=== PATIENT | female | born 1930 | race Caucasian/White ===

== ENCOUNTER → 2016-09-21 | Day surgery (SDC) | payer BC ==
[2016-09-14 16:45] VITALS: Ht 157.5 cm; Wt 47.7 kg
[~2016-09-21] VITALS: Ht 157.5 cm; Wt 47.7 kg
[~2016-09-21] MED LIST: 500ML BSS 0.3ML EPI 1:1000PF IRRIG ONE; ACETAMINOPHEN 325 MG TAB PO PRN; B-COTAB18 PO; BROM0.07; CALC500T78 PO; EpINEphrine INJ 1MG/ML AMP 1 MG/ML AMP ONE; GATI1SOL2; GINK60TA2 PO; LACTATED RINGER'S 1000ML 500 ML IV SCH; LIDOCAINE 3.5% OPH GEL PER APPLICATION CHARGE ONE; LIDOCAINE HCL 1% MPF 2 ML VIAL ONE; MIDAZOLAM HCL 1 MG/ML 2ML VIAL ONE; MULTCAP7 PO; OCUCOAT 1 ML SOLN IO ONE; OMEG10007 PO; POVIDONE-IODINE OP SOLN 30 ML BTL ONE; PRDFOPS; PROPARACAINE 0.5% OP SOLN PER DROP CHARGE OPL SCH; TOBRAMYCIN/DEXAMETHASONE OPH OINT PER APPLN CHARGE ONE; TURMPOW2 PO; VITACAP26 PO; VITAMIN D3 PO; VITATAB19 PO; [UNRECOGNIZED DRUG - OTHER] PO
[2016-09-21] MEDS: PHENYLEPHRINE HCL 2.5% OP SOLN PER DROP CHARGE OPL SCH ×2 (08:48→08:53)
[2016-09-21] MEDS: TROPICAMIDE 1% OP SOLN PER DROP CHARGE OPL SCH ×2 (08:49→08:54)
[2016-09-21] MEDS: CYCLOPENTOLATE HCL 1% OP SOLN PER DROP CHARGE OPL SCH ×2 (08:50→08:55)
[2016-09-21] MEDS: KETOROLAC 0.5% OP SOLN PER DROP CHARGE OPL SCH ×2 (08:51→08:56)
[2016-09-21] MEDS: GATIFLOXACIN OP SOLN PER DROP CHARGE OPL SCH ×2 (08:52→09:02)
--- NOTE | 2016-09-21 08:53 | History & Physical Bridge - SC ---
H&P Re-Evaluation Bridge Note: I have examined the patient, reviewed the History & Physical and in the interval since the performance of the History & Physical I have noted the following changes of clinical significance: No changes noted
[2016-09-21 09:34] VITALS: TEMP 36.4
--- NOTE | 2016-09-21 09:38 | Discharge Instructions-SurgCtr ---
Discharge Instructions Visit Reason for Visit: Cataract Left Eye Discharge Discharge Diagnosis / Problem: cataract Discharge Goals Goal(s): Improve function Activity Recommendations Activity Limitations: per Instructions/Follow-up section Anesthesia . Post Anesthesia Instructions: If you have had General Anesthesia or IV Sedation: * Do not drive today. * Resume driving when surgeon permits. * Do not make important decisions or sign legal documents today. * Call surgeon for: 1. Temperature elevations greater than 101 degrees F. 2. Uncontrollable pain. 3. Excessive bleeding. 4. Persistent nausea and vomiting. 5. Medication intolerance (nausea, vomiting or rash). * For nausea and vomiting use only clear liquids such as: tea, soda, bouillon until nausea subsides, then gradually increase diet as tolerated. * If you have any concerns or questions, call your surgeon's office. If physician is unavailable and it is an emergency, call 911 or go to the nearest emergency room. . Instructions / Follow-Up Instructions / Follow-Up ACTIVITY RECOMMENDATIONS: * No strenuous lifting, jogging or running for 4 days * No swimming or yard work for 1 week. * Limited bending is permitted, such as putting on shoes. RETURN TO SCHOOL/WORK: No work until seen by physician in office. MEDICATIONS: Resume previous medications unless instructed otherwise by your surgeon. This includes eye drops for glaucoma. Zymaxid/Gatifloxacin (miller cap) - one drop every 2 hours until bedtime Nevanac/Ilevro/Prolensa/Ketorolac (ramirez cap) - one drop every 4 hours until bedtime Prednisolone (white/pink cap, SHAKE WELL) - one drop every 2 hours until bedtime Starting tomorrow - all 3 drops every 4 hours until seen in the office Optive drops - as needed for discomfort SPECIAL CARE INSTRUCTIONS: * Wear eyeshield when sleeping, for four nights. * You may wear your own glasses or sunglasses while awake. * You may read or watch TV * You may shower and wash your face, but be gentle around the eye and pat dry. * Blurry vision and mild irritation are normal. * Call office if pain is more severe or vision becomes dark at . FOLLOW UP VISIT: Follow-up with Dr Velásquez tomorrow. Diet Recommendations Home Diet: resume previous diet Procedures Procedures Performed: Left Eye Cataract Phacoemulsification With Intraocular Lens Implant Pending Studies Studies pending at discharge: no Medical Emergencies . Who to Call and When: Medical Emergencies: If at any time you feel your situation is an emergency, please call 911 immediately. . Non-Emergent Contact Non-Emergency issues call your: Apartment Maintenance . . "Provider Documentation" section prepared by Joe Velásquez.
--- NOTE | 2016-09-21 09:39 | [facility] Operative Report ---
Operative Report 1. PREOPERATIVE DIAGNOSIS: Cataract of the left eye. 2. POSTOPERATIVE DIAGNOSIS: Same. 3. PROCEDURE: Phacoemulsification with intraocular lens implantation of the left eye. SURGEON: Dr. Joe Velásquez. ANESTHESIA: Topical Lidocaine gel, 1% Non- Preserved intracameral Lidocaine, and monitored intravenous sedation. INDICATIONS FOR THE PROCEDURE: The patient is a 85 - year-old female with a history of cataract of the left eye causing significant visual impairment. The details of the proposed procedure were explained to the patient who asked appropriate questions and following discussion of all risks, benefits and alternatives agreed to have the procedure done. 4. OPERATION AND FINDINGS: DESCRIPTION OF PROCEDURE: After informed consent was obtained, the patient was brought to the Operating Room at the [facility]. The patient was placed in a supine position and then the left eye was prepped and draped in the usual sterile fashion for intraocular surgery. A drop of topical Lidocaine gel was placed in the operative eye. A wire lid speculum was then placed in the fornices. A corneal paracentesis was then created temporally. The Non-Preserved Lidocaine was then instilled into the anterior chamber. The anterior chamber was then pressurized with viscoelastic. A 2.0 mm clear corneal incision was then created temporally. A cystotome was inserted into the anterior chamber and used to create a tear in the anterior lens capsule. This capsular tear was then used to create a small flap and the flap was dragged in a counterclockwise direction in order to create a continuous curvilinear capsulorrhexis. Hydrodissection was accomplished with balanced salt solution. Phacoemulsification of the lens nucleus was then performed in a standard [id number] technique. The phaco time was 22 seconds with an average power of 14 %. The remaining cortical material was removed using irrigation aspiration. The capsular bag was then filled with viscoelastic. A Bausch [employer] Lomb MI60L +23.5 diopters lens was then loaded into the injector and injected into the capsular bag. The remaining viscoelastic was removed with the irrigation aspiration handpiece. The wound was hydrated and then checked and found to be watertight. The intraocular pressure was checked and found to be adequate. The wire lid speculum was removed and the patient's face was cleaned and dried. TobraDex ointment was placed in the inferior fornix. The patient was discharged to the Recovery Room having tolerated the procedure well. There were no complications. The patient will be seen tomorrow in the office for follow-up. I attest to the content of the Intraoperative Record and any orders documented therein. Any exceptions are noted below.
--- NOTE | 2016-09-21 10:05 | Anesthesia Progress Nt - [facility] ---
Anesthesia Post Op Note Date & Time Sep 21, 2016 at 10:05 Vital Signs Pain Intensity: 0 Vital Signs Past 12 Hours Date Time Temp Pulse Resp B/P Pulse Ox O2 Delivery O2 Flow Rate FiO2 09/21/16 09:34 36.4 71 16 144/76 99 Room Air 09/21/16 08:40 36.9 74 16 170/85 99 Room Air Notes Mental Status: alert / awake / arousable, participated in evaluation Nausea / Vomiting: adequately controlled Pain: adequately controlled Airway Patency, RR, SpO2: stable & adequate BP & HR: stable & adequate Hydration State: stable & adequate Anesthetic Complications: no major complications apparent Pt doing well.
[2016-09-21 10:09] VITALS: BP 166/88; PULSE 77; O2SAT 98
== END | disposition home or self-care (01) ==
LOC: X.SURG 08:30
PROVIDERS: ATTEND Ophthalmology
DX: H26.9 Unspecified cataract (principal); Z86.73 Personal history of transient ischemic attack (TIA), and cerebral infarction without residual deficits; Z96.1 Presence of intraocular lens

== ENCOUNTER 2017-12-02 16:23 | Inpatient (IN) | payer BC, OTHER ==
[~2017-12-02] VITALS: Ht 154.9 cm; Wt 56.1 kg
[~2017-12-02 16:23] MED LIST changes: -500ML BSS 0.3ML EPI 1:1000PF IRRIG ONE; -ACETAMINOPHEN 325 MG TAB PO PRN; -EpINEphrine INJ 1MG/ML AMP 1 MG/ML AMP ONE; -LACTATED RINGER'S 1000ML 500 ML IV SCH; -LIDOCAINE 3.5% OPH GEL PER APPLICATION CHARGE ONE; -LIDOCAINE HCL 1% MPF 2 ML VIAL ONE; -MIDAZOLAM HCL 1 MG/ML 2ML VIAL ONE; -OCUCOAT 1 ML SOLN IO ONE; -POVIDONE-IODINE OP SOLN 30 ML BTL ONE; -PROPARACAINE 0.5% OP SOLN PER DROP CHARGE OPL SCH; -TOBRAMYCIN/DEXAMETHASONE OPH OINT PER APPLN CHARGE ONE
--- NOTE | 2017-12-02 17:18 | EMERGENCY ROOM VISIT NOTE ---
History Report prepared by Brooke: Ania Deras Under the Supervision of: Dr. Tonny Diaz M.D. 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 She states she fell down 2 steps because she did not seem them. Movement is a worsening factor. She denies any abdominal pain. She is accompanied by her neighbor who states that she was at the [employer] when she fell down the 2 steps. Source of History: patient, friend (neighbor) Onset: optical engineer Position: shoulder (right) Symptom Intensity: severe Modifying Factors (Worsening): movement Associated Symptoms: No abdominal pain Review of Systems See HPI for pertinent positives and negatives. A total of ten systems were reviewed and were otherwise negative. Past Medical & Surgical Medical Problems: (1) Closed right hip fracture (2) CVA (cerebral vascular accident) Surgical Problems: (1) h o finger surgery (2) Hx of tonsillectomy Family History Omitted secondary to age Social History Smoking Status: Never Smoker Alcohol Use: none Drug Use: none Marital Status: Housing Status: lives with significant other Occupation Status: retired Current/Historical Medications Scheduled Ascorbic Acid (Vitamin C), 2 TABS PO BID B-Complex Vitamins (Vitamin B Complex), 1 TAB PO DAILY Bromelains (Bromelain), 1 DOSE PO Q2D Coconut Oil (Bulk) (Coconut Oil), 1 CAP PO DAILY Flaxseed (Linseed) (Flaxseed Oil), 1 DOSE PO DAILY Ginkgo Biloba (Ginkgo), 1 TAB PO BID Multiple Minerals W/ Vitamins (Calcium Citrate +), 2 TABS PO BID Multiple Vitamins W/ Minerals (Eye Vitamins), 1 CAP PO QAM Wales Oil (Wales Oil), 1 DOSE PO DAILY Turmeric (Curcuma Longa) (Bulk (Curcumin), 1 DOSE PO QAM Vitamin A-Beta Carotene (Vitamin A), 1 TAB PO DAILY [Vitamin D3], 6 DROP PO DAILY Allergies Coded Allergies: No Known Allergies (Unverified , 09/21/16) Physical Exam Vital Signs Date Time Temp Pulse Resp B/P (MAP) Pulse Ox O2 Delivery O2 Flow Rate FiO2 12/02/17 20:13 69 12/02/17 18:48 87 24 157/91 95 Room Air 12/02/17 16:31 36.4 88 20 182/128 98 Room Air Physical Exam Physical Exam GENERAL: She is oriented to person, place, and time. She appears well- developed and well-nourished. HENT: Exam performed. Head: Normocephalic and atraumatic. Right Ear: External ear normal. No mastoid tenderness. Left Ear: External ear normal. No mastoid tenderness. Mouth/Throat: The oropharynx is clear and moist. No trismus in the jaw. No dental abscesses or uvula swelling. No oropharyngeal exudate or tonsillar abscesses. ____ EYES: Conjunctivae and EOM are normal. Pupils are equal, round, and reactive to light. Right eye exhibits no discharge. Left eye exhibits no discharge. No scleral icterus. ____ NECK: C collar in place. No pain noted to neck. CV: Normal rate, regular rhythm, normal heart sounds and intact distal pulses. There is no peripheral edema. Palpable radial pulses bue. ____ PULM/CHEST: Effort normal and breath sounds normal. No respiratory distress. No stridor. She has no wheezes. She has no rales. Chest Wall: She exhibits no tenderness. ____ ABD: The abdomen is soft. Bowel sounds are normal. She has no distension. No mass is present. There is no tenderness. There is no rebound, no guarding, no Pruitt's sign and no tenderness at McBurney's point. Rovsig negative MUSC/SKEL: Pain on palpation of the right shoulder. ROM limited secondary to pain. No pain on palpation of either clavicle. Pelvis stable. No CT or L spine tenderness. LYMPH: No cervical adenopathy. ____ NEURO: She is alert and oriented to person, place, and time. No cranial nerve deficit or sensory deficit.GCS eye subscore is 4. GCS verbal subscore is 5. GCS motor subscore is 6. Cerebellar tests wnl. ____ SKIN: Skin is warm and dry. She is not diaphoretic. ____ PSYCH: She has a normal mood and affect. Her behavior is normal. Judgment and thought content normal. ____ Medical Decision & Procedures ER Provider Diagnostic Interpretation: Radiology results as stated below per my review and radiologist interpretation: RIGHT SHOULDER 4 VIEWS CLINICAL HISTORY: Fall with right arm pain. FINDINGS: 4 views the right shoulder are obtained. No prior studies are available for comparison at the time of dictation. The skeletal structures are osteopenic. There is an impacted fracture of the right humeral neck extending into the greater tuberosity of the humeral head. No distracted fragment is identified. No additional fracture is seen. The glenohumeral articulation is preserved. Minimal degenerative changes seen at the acromioclavicular joint. The overlying soft tissues are normal in appearance. The imaged right lung parenchyma appears clear. IMPRESSION: Osteopenia with a subtle impacted fracture of the right humeral neck as above. Electronically signed by: Anibal Wright M.D. 12/02/2017 6:51 PM Dictated Date/Time: 12/02/2017 6:49 PM SINGLE VIEW PELVIS CLINICAL HISTORY: Fall. FINDINGS: An AP view of the pelvis is compared to study dated 05/06/2016. The skeletal structures are osteopenic. There is an impacted fracture of the subcapital right femur with mild overlying soft tissue edema. No additional acute fracture is identified. There is chronic posttraumatic deformity and postoperative change involving the left proximal femur. The bony pelvis is intact as visualized. Mild sclerotic change is noted in the sacroiliac joints. Mild arthritic change and joint space narrowing is seen in the hips. Numerous phleboliths are identified in the pelvis. No bowel obstruction is seen. IMPRESSION: 1. There is an impacted subcapital fracture of the right femur. 2. Chronic posttraumatic deformity and postoperative change is noted in the left proximal femur. Electronically signed by: Anibal Wright M.D. 12/02/2017 6:49 PM Dictated Date/Time: 12/02/2017 6:[address] SCAN OF THE BRAIN WITHOUT IV CONTRAST CLINICAL HISTORY: Fall. COMPARISON STUDY: CT of the brain dated 10/22/2015. TECHNIQUE: Unenhanced axial CT scan of the brain is performed from the vertex to the skull base. A dose lowering technique was utilized adhering to the principles of ALARA. CT DOSE: 1517.48 mGy.cm FINDINGS: Brain parenchyma: There are age-related involutional changes noting moderate confluent subcortical and periventricular microangiopathic change. A chronic lacunar infarct is identified in the right basal ganglia. There is no hemorrhage, mass effect, or evidence of acute territorial ischemia by CT criteria. Cohen-white matter is preserved. No extra-axial fluid collection is seen. Mineralization is noted in the basal ganglia. Ventricles, sulci, cisterns: Prominent secondary to involutional change. Intracranial vasculature: There is atherosclerotic calcification of the cavernous carotid and vertebral arteries. Calvarium: The skeletal structures are osteopenic. No depressed calvarial fracture is seen. Sinuses and mastoids: The visualized paranasal sinuses are clear. The mastoid air cells are well pneumatized. Orbits: The bony orbits are grossly intact. There are bilateral ocular lens implants. IMPRESSION: There is no hemorrhage, mass effect, or evidence of acute territorial ischemia by CT criteria. Electronically signed by: Anibal Wright M.D. 12/02/2017 5:59 PM Dictated Date/Time: 12/02/2017 5:56 PM TWO VIEW CHEST CLINICAL HISTORY: Fall. FINDINGS: AP supine and crosstable lateral chest radiographs are compared to study dated 05/06/2016. The heart is top normal for projection and there is atherosclerotic calcification of the thoracic aorta. The pulmonary vasculature is noncongested. Chronic residual thickening is similar to previous. No airspace consolidation or pleural effusion is identified. There is no pneumothorax. The skeletal structures are osteopenic. Degenerative changes noted in the thoracic spine. IMPRESSION: No acute cardiopulmonary abnormality. Electronically signed by: Anibal Wright M.D. 12/02/2017 6:47 PM Dictated Date/Time: 12/02/2017 6:[address] SCAN OF THE CERVICAL SPINE CLINICAL HISTORY: Fall. COMPARISON STUDY: No priors. TECHNIQUE: CT scan of the cervical spine is performed from the skull base to the upper thoracic spine. Images are reviewed in the axial, sagittal, and coronal planes. IV contrast was not administered for this examination. A dose lowering technique was utilized adhering to the principles of ALARA. CT DOSE: Reported separately under the concurrently performed CT scan of the brain. FINDINGS: Skeletal structures: The skeletal structures are osteopenic. There is no evidence of fracture or subluxation involving the cervical spine. Vertebral body height is maintained. There is minimal anterolisthesis at C3-C4. Alignment is otherwise preserved. There is straightening of the cervical lordosis with reversal centered at C4-C5. Anterior osteophytes are seen in the lower cervical region. The odontoid process and lateral masses are intact. The atlantoaxial articulation is preserved noting advanced productive degenerative change. The spinous processes appear intact. There is moderate to advanced multilevel cervical spondylosis. Uncovertebral and facet arthropathy contribute to neural foraminal stenosis at most levels. Intervertebral discs: There is moderate disc space narrowing seen from C3 -C4 through C6-C7. Central canal: Posterior disc osteophyte complexes at C4-C5, C5-C6, and C6-C7 likely contribute to acquired compromise of the central canal. Soft tissues: The prevertebral and paraspinous soft tissues are within normal limits. A coarse calcification is noted in the left thyroid lobe. Calvarium: The visualized calvarium at the skull base appears intact. Brain parenchyma: Partially visualized brain parenchyma the skull base is within normal limits. Sinuses and mastoids: The visualized paranasal sinuses are clear. The mastoid air cells are well pneumatized. Lung apices: Clear as visualized noting biapical scarring. IMPRESSION: 1. There is no evidence of fracture or subluxation involving the cervical spine. 2. Osteopenia and multilevel spondylosis as above. Electronically signed by: Anibal Wright M.D. 12/02/2017 6:03 PM Dictated Date/Time: 12/02/2017 5:59 PM Laboratory Results 12/02/17 19:05 Red Blood Count 4.17, Mean Corpuscular Volume 90.4, Mean Corpuscular Hemoglobin 32.1, Mean Corpuscular Hemoglobin Concent 35.5, Mean Platelet Volume 11.7, Neutrophils (%) (Auto) 84.6, Lymphocytes (%) (Auto) 10.3, Monocytes (%) (Auto) 4.3, Eosinophils (%) (Auto) 0.2, Basophils (%) (Auto) 0.1, Neutrophils # (Auto) 10.98, Lymphocytes # (Auto) 1.33, Monocytes # (Auto) 0.56, Eosinophils # (Auto) 0.02, Basophils # (Auto) 0.01 12/02/17 19:05 Test 12/02/17 19:05 White Blood Count 12.96 K/uL (4.8-10.8) Red Blood Count 4.17 M/uL (4.2-5.4) Hemoglobin 13.4 g/dL (12.0-16.0) Hematocrit 37.7 % (37-47) Mean Corpuscular Volume 90.4 fL (80-100) Mean Corpuscular Hemoglobin 32.1 pg (25-34) Mean Corpuscular Hemoglobin Concent 35.5 g/dl (32-36) Platelet Count 158 K/uL (130-400) Mean Platelet Volume 11.7 fL (7.4-10.4) Neutrophils (%) (Auto) 84.6 % Lymphocytes (%) (Auto) 10.3 % Monocytes (%) (Auto) 4.3 % Eosinophils (%) (Auto) 0.2 % Basophils (%) (Auto) 0.1 % Neutrophils # (Auto) 10.98 K/uL (1.4-6.5) Lymphocytes # (Auto) 1.33 K/uL (1.2-3.4) Monocytes # (Auto) 0.56 K/uL (0.11-0.59) Eosinophils # (Auto) 0.02 K/uL (0-0.5) Basophils # (Auto) 0.01 K/uL (0-0.2) RDW Standard Deviation 45.1 fL (36.4-46.3) RDW Coefficient of Variation 13.6 % (11.5-14.5) Immature Granulocyte % (Auto) 0.5 % Immature Granulocyte # (Auto) 0.06 K/uL (0.00-0.02) Prothrombin Time 10.1 SECONDS (9.0-12.0) Prothromb Time International Ratio 1.0 (0.9-1.1) Activated Partial Thromboplast Time 26.8 SECONDS (21.0-31.0) Partial Thromboplastin Ratio 1.0 Anion Gap 6.0 mmol/L (3-11) Est Creatinine Clear Calc Drug Dose 54.4 ml/min Estimated GFR () 97.9 Estimated GFR (Non- 84.4 BUN/Creatinine Ratio 30.0 (10-20) Calcium Level 9.0 mg/dl (8.5-10.1) Magnesium Level 2.1 mg/dl (1.8-2.4) Total Bilirubin 0.3 mg/dl (0.2-1) Direct Bilirubin 0.1 mg/dl (0-0.2) Aspartate Amino Transf (AST/SGOT) 47 U/L (15-37) Alanine Aminotransferase (ALT/SGPT) 38 U/L (12-78) Alkaline Phosphatase 101 U/L (45-117) Total Protein 7.7 gm/dl (6.4-8.2) Albumin 3.9 gm/dl (3.4-5.0) Thyroid Stimulating Hormone (TSH) 2.350 uIu/ml (0.300-4.500) Laboratory results reviewed by me Medications Administered Medications (Trade) Dose Ordered Sig/Aristeo Route Start Time Stop Time Status Last Admin Dose Admin Sodium Chloride 1,000 ml @ 75 mls/hr [id number] STAT IV 12/02/17 19:11 12/02/17 20:47 DC 12/02/17 19:17 75 MLS/HR Ondansetron HCl (Zofran Inj) 4 mg NOW STAT IV 12/02/17 19:11 12/02/17 19:13 DC 12/02/17 19:18 4 MG Morphine Sulfate (MoRPHine SULFATE INJ) 2 mg STK-MED ONCE .ROUTE 12/02/17 19:14 12/02/17 19:15 DC 12/02/17 19:18 2 MG Morphine Sulfate (MoRPHine SULFATE INJ) 4 mg NOW STAT IV 12/02/17 20:29 12/02/17 20:30 DC 12/02/17 20:34 4 MG Procedure Bedside FAST exam performed with ultrasound. Views were obtained in the hepatorenal subxyphoid splenorenal and suprapubic windows. No free fluid in the abdomen. No pericardial tamponade. ED Course 1705: The patient was evaluated in room A12. A complete history and physical exam was performed. 1910: Zofran Inj 4 mg IV Morphine Sulfate 2 mg IV Sodium Chloride 1000 ml @ 75 mls/hr IV 1913: Morphine Sulfate 2 mg IV 6: CT is within normal limits. X-rays show right-sided humeral fracture and femur fracture. Fast negative. I discussed the patient's case with Dr. Rainey, Orthopedics. He viewed the x-rays and agreed the patient should be admitted to medicine. [facility] the [facility] The patient will be evaluated for further treatment and disposition. Medical Decision CT is within normal limits. X-rays show right-sided humeral fracture and femur fracture. Fast negative. I discussed the patient's case with Dr. Rainey, Orthopedics. He viewed the x-rays and agreed the patient should be admitted to medicine. Discussed the patient's case with [facility]ist . The patient will be evaluated for further treatment and disposition. Medication Reconcilliation Current Medication List: was personally reviewed by me Blood Pressure Screening Patient's blood pressure: Elevated blood pressure Blood pressure disposition: Elevated BP felt to be situational Consults Time Called: 1919 [facility] Phys[facility] Returned Call: 1927 Discussed the patient's case with [facility] . The patient will be evaluated for further treatment and disposition. Additional Consults: Time Called: 1919 Consulted Physician: Dr. Rainey, Orthopedics Returned Call: 1925 Additional Comments: I discussed the patient's with him. He viewed the x-rays and agreed the patient should be admitted to medicine. Impression Primary Impression: Femur fracture, right Additional Impressions: Fracture of humerus, right, closed Fall Scribe Attestation The scribe's documentation has been prepared under my direction and personally reviewed by me in its entirety. I confirm that the note above accurately reflects all work, treatment, procedures, and medical decision making performed by me. The chart was completed utilizing [employer] Speech voice recognition software. Grammatical errors, random word insertions, pronoun errors, and incomplete sentences are an occasional consequence of this system due to software limitations, ambient noise, and hardware issues. Any formal questions or concerns about the content, text, or information contained within the body of this dictation should be directly addressed to the physician for clarification. Departure Information Dispostion Being Evaluated By Hospitalist ([facility] ) Referrals ,Santiago Dunne M.D. (PCP) Patient Instructions My [facility] Problem Qualifiers Primary Impression: Femur fracture, right Encounter type: initial encounter Femur location: unspecified portion of femur Fracture type: closed Fracture morphology: unspecified fracture morphology Qualified Codes: S72.91XA - Unspecified fracture of right femur, initial encounter for closed fracture Additional Impressions: Fracture of humerus, right, closed Encounter type: initial encounter Humerus Location: proximal Fracture morphology: unspecified fracture morphology Qualified Codes: S42.201A - Unspecified fracture of upper end of right humerus, initial encounter for closed fracture Fall Encounter type: initial encounter Qualified Codes: W19.XXXA - Unspecified fall, initial encounter
--- NOTE | 2017-12-02 18:01 | DIAGNOSTIC IMAGING REPORT ---
CT SCAN OF THE BRAIN WITHOUT IV CONTRAST CLINICAL HISTORY: Fall. COMPARISON STUDY: CT of the brain dated 10/22/2015. TECHNIQUE: Unenhanced axial CT scan of the brain is performed from the vertex to the skull base. A dose lowering technique was utilized adhering to the principles of ALARA. CT DOSE: 1517.48 mGy.cm FINDINGS: Brain parenchyma: There are age-related involutional changes noting moderate confluent subcortical and periventricular microangiopathic change. A chronic lacunar infarct is identified in the right basal ganglia. There is no hemorrhage, mass effect, or evidence of acute territorial ischemia by CT criteria. Cohen-white matter is preserved. No extra-axial fluid collection is seen. Mineralization is noted in the basal ganglia. Ventricles, sulci, cisterns: Prominent secondary to involutional change. Intracranial vasculature: There is atherosclerotic calcification of the cavernous carotid and vertebral arteries. Calvarium: The skeletal structures are osteopenic. No depressed calvarial fracture is seen. Sinuses and mastoids: The visualized paranasal sinuses are clear. The mastoid air cells are well pneumatized. Orbits: The bony orbits are grossly intact. There are bilateral ocular lens implants. IMPRESSION: There is no hemorrhage, mass effect, or evidence of acute territorial ischemia by CT criteria. Electronically signed by: Anibal Wright M.D. 12/02/2017 5:59 PM Dictated Date/Time: 12/02/2017 5:56 PM
--- NOTE | 2017-12-02 18:04 | DIAGNOSTIC IMAGING REPORT ---
CT SCAN OF THE CERVICAL SPINE CLINICAL HISTORY: Fall. COMPARISON STUDY: No priors. TECHNIQUE: CT scan of the cervical spine is performed from the skull base to the upper thoracic spine. Images are reviewed in the axial, sagittal, and coronal planes. IV contrast was not administered for this examination. A dose lowering technique was utilized adhering to the principles of ALARA. CT DOSE: Reported separately under the concurrently performed CT scan of the brain. FINDINGS: Skeletal structures: The skeletal structures are osteopenic. There is no evidence of fracture or subluxation involving the cervical spine. Vertebral body height is maintained. There is minimal anterolisthesis at C3-C4. Alignment is otherwise preserved. There is straightening of the cervical lordosis with reversal centered at C4-C5. Anterior osteophytes are seen in the lower cervical region. The odontoid process and lateral masses are intact. The atlantoaxial articulation is preserved noting advanced productive degenerative change. The spinous processes appear intact. There is moderate to advanced multilevel cervical spondylosis. Uncovertebral and facet arthropathy contribute to neural foraminal stenosis at most levels. Intervertebral discs: There is moderate disc space narrowing seen from C3 -C4 through C6-C7. Central canal: Posterior disc osteophyte complexes at C4-C5, C5-C6, and C6-C7 likely contribute to acquired compromise of the central canal. Soft tissues: The prevertebral and paraspinous soft tissues are within normal limits. A coarse calcification is noted in the left thyroid lobe. Calvarium: The visualized calvarium at the skull base appears intact. Brain parenchyma: Partially visualized brain parenchyma the skull base is within normal limits. Sinuses and mastoids: The visualized paranasal sinuses are clear. The mastoid air cells are well pneumatized. Lung apices: Clear as visualized noting biapical scarring. IMPRESSION: 1. There is no evidence of fracture or subluxation involving the cervical spine. 2. Osteopenia and multilevel spondylosis as above. Electronically signed by: Anibal Wright M.D. 12/02/2017 6:03 PM Dictated Date/Time: 12/02/2017 5:59 PM
--- NOTE | 2017-12-02 18:48 | DIAGNOSTIC IMAGING REPORT ---
TWO VIEW CHEST CLINICAL HISTORY: Fall. FINDINGS: AP supine and crosstable lateral chest radiographs are compared to study dated 05/06/2016. The heart is top normal for projection and there is atherosclerotic calcification of the thoracic aorta. The pulmonary vasculature is noncongested. Chronic residual thickening is similar to previous. No airspace consolidation or pleural effusion is identified. There is no pneumothorax. The skeletal structures are osteopenic. Degenerative changes noted in the thoracic spine. IMPRESSION: No acute cardiopulmonary abnormality. Electronically signed by: Anibal Wright M.D. 12/02/2017 6:47 PM Dictated Date/Time: 12/02/2017 6:45 PM
--- NOTE | 2017-12-02 18:50 | DIAGNOSTIC IMAGING REPORT ---
SINGLE VIEW PELVIS CLINICAL HISTORY: Fall. FINDINGS: An AP view of the pelvis is compared to study dated 05/06/2016. The skeletal structures are osteopenic. There is an impacted fracture of the subcapital right femur with mild overlying soft tissue edema. No additional acute fracture is identified. There is chronic posttraumatic deformity and postoperative change involving the left proximal femur. The bony pelvis is intact as visualized. Mild sclerotic change is noted in the sacroiliac joints. Mild arthritic change and joint space narrowing is seen in the hips. Numerous phleboliths are identified in the pelvis. No bowel obstruction is seen. IMPRESSION: 1. There is an impacted subcapital fracture of the right femur. 2. Chronic posttraumatic deformity and postoperative change is noted in the left proximal femur. Electronically signed by: Anibal Wright M.D. 12/02/2017 6:49 PM Dictated Date/Time: 12/02/2017 6:47 PM
--- NOTE | 2017-12-02 18:52 | DIAGNOSTIC IMAGING REPORT ---
RIGHT SHOULDER 4 VIEWS CLINICAL HISTORY: Fall with right arm pain. FINDINGS: 4 views the right shoulder are obtained. No prior studies are available for comparison at the time of dictation. The skeletal structures are osteopenic. There is an impacted fracture of the right humeral neck extending into the greater tuberosity of the humeral head. No distracted fragment is identified. No additional fracture is seen. The glenohumeral articulation is preserved. Minimal degenerative changes seen at the acromioclavicular joint. The overlying soft tissues are normal in appearance. The imaged right lung parenchyma appears clear. IMPRESSION: Osteopenia with a subtle impacted fracture of the right humeral neck as above. Electronically signed by: Anibal Wright M.D. 12/02/2017 6:51 PM Dictated Date/Time: 12/02/2017 6:49 PM
[2017-12-02] MEDS ORDERED: SODIUM CHLORIDE 0.9% 1000ML 1,000 ML IV STA (19:11)
[2017-12-02] MEDS ORDERED: MoRPHine SULFATE 4 MG/ML 1 ML CARP\\VIAL IV STA ×2 (19:11→20:29)
[2017-12-02] MEDS ORDERED: ONDANSETRON INJ 2 MG/ML 2 ML VIAL IV STA (19:11)
[2017-12-02] MEDS ORDERED: MoRPHine SULFATE 2 MG/ML CARP ONE (19:14)
[2017-12-02 19:31] LABS: CREATININE 0.56 mg/dl (0.60-1.20); POTASSIUM 3.8 mmol/L (3.5-5.1)
[2017-12-02 19:32] LABS: PTT PATIENT 26.8 SECONDS (21.0-31.0)
[2017-12-02] MEDS ORDERED: BROM1POW5 PO (19:33)
[2017-12-02] MEDS ORDERED: COCO1OIL2 PO (19:33)
[2017-12-02] MEDS ORDERED: VITATAB19 PO (19:33)
[2017-12-02] MEDS ORDERED: ASCO10003 PO (19:33)
[2017-12-02] MEDS ORDERED: FLAXOIL3 PO (19:33)
[2017-12-02] MEDS ORDERED: OLIV1OIL5 PO (19:33)
[2017-12-02] MEDS ORDERED: MULT-360 PO (19:33)
[2017-12-02 19:34] LABS: HEMATOCRIT 37.7 % (37-47); HEMOGLOBIN 13.4 g/dL (12.0-16.0); MEAN CELL VOLUME 90.4 fL (80-100); MEAN CORPUSCULAR HEMOGLOBIN 32.1 pg (25-34); MEAN CORPUSCULAR HGB CONC 35.5 g/dl (32-36); RED CELL DISTRIBUTION WIDTH CV 13.6 % (11.5-14.5); RED CELL DISTRIBUTION WIDTH SD 45.1 fL (36.4-46.3); WHITE BLOOD COUNT 12.96 K/uL (4.8-10.8)
[2017-12-02 19:40] LABS: MEAN PLATELET VOLUME 11.7 fL (7.4-10.4); PLATELET COUNT 158 K/uL (130-400)
[2017-12-02 19:41] LABS: BASO % 0.1 %; BASO ABS # 0.01 K/uL (0-0.2); EOS % 0.2 %; EOS ABS # 0.02 K/uL (0-0.5); IG# 0.06 K/uL (0.00-0.02); LYMPH % 10.3 %; LYMPH ABS # 1.33 K/uL (1.2-3.4); MONO % 4.3 %; MONO ABS # 0.56 K/uL (0.11-0.59); NEUT % 84.6 %; NEUT ABS # 10.98 K/uL (1.4-6.5)
[2017-12-02 20:30] LABS: ALBUMIN 3.9 gm/dl (3.4-5.0); TOTAL PROTEIN 7.7 gm/dl (6.4-8.2)
[2017-12-02] MEDS ORDERED: ACETAMINOPHEN 325 MG TAB PO PRN (20:45)
[2017-12-02] MEDS ORDERED: SOD PHOSPHATE/SOD BIPHOSPHATE ENEMA 132 ML BTL PR PRN (20:45)
[2017-12-02] MEDS ORDERED: PROCHLORPERAZINE INJ 5 MG in SYRINGE 4 ML IV PRN (20:45)
[2017-12-02] MEDS ORDERED: BISACODYL 10 MG SUPP PR PRN (20:45)
[2017-12-02] MEDS ORDERED: NALOXONE HCL 0.4 MG/1 ML VIAL/CARP IV PRN (20:45)
[2017-12-02] MEDS ORDERED: MAGNESIUM HYDROXIDE SUSP 30 ML UDC PO PRN (20:45)
[2017-12-02 21:20] VITALS: BP 93/54; PULSE 66; TEMP 37.5; O2SAT 97; BMI 23.4
[2017-12-02] MEDS ORDERED: NSS + 20MEQ KCL 1000ML 1,000 ML IV SCH (22:00)
--- NOTE | 2017-12-02 22:02 | HISTORY & PHYSICAL EXAMINATION ---
DATE OF ADMISSION: 12/02/2017 PRIMARY CARE PHYSICIAN: Dr. Celaya. CHIEF COMPLAINT: Fall. HISTORY OF PRESENT ILLNESS: History obtained from patient and records. Medical history significant for chronic hyponatremia, neuropathy as per records, macular degeneration. Recent confinement May 2016 for left hip fracture secondary to fall sp surgery. Patient was at the [facility] earlier today for a meal. She fell down 2 steps somewhere at the facility. Patient fell on her right side. She subsequently noted excruciating right shoulder and R hip pain. No chest pain, no shortness of breath, no syncope, no head trauma, no LOC. She was brought to the Emergency Room. MEDICAL HISTORY: As above. She stopped her aspirin for stroke sometime ago because of bleeding. SURGERIES: Finger surgery, tonsillectomy, left hip surgery. HOME MEDICATIONS: Include vitamin C, vitamin B, bromelain, coconut oil, flax seed, calcitrate, olive oil, turmeric, vitamin A, vitamin D3. ALLERGIES: No known drug allergies. FAMILY HISTORY: Stroke. PERSONAL SOCIAL HISTORY: Nonsmoker, no chronic intake of alcoholic beverages. , retired pianist. REVIEW OF SYSTEMS: As per HPI. All 10 systems reviewed, all other ROS negative. FUNCTIONALITY : Still able to do housework without exertional chest pain or shortness of breath PHYSICAL EXAMINATION: VITAL SIGNS: Blood pressure was noted to be 182/128 later 150/70, pulse rate 87, RR 24, temperature 36.4, sats 95 on room air. GENERAL: Noted to be anxious, uncomfortable, no respiratory distress, looks younger for stated age. SKIN: Normal color, warm. HEENT: [place] palpebral conjunctivae. No ptosis. Dry mucosa. NECK: Supple, nontender. LUNGS: Decreased breath sounds. No tenderness. HEART: Regular rate and rhythm, no murmur. ABDOMEN: Soft, nontender. EXTREMITIES: Sling on the right upper extremity. Tenderness in right hip. NEUROLOGIC: Coherent. No gross focality. LABORATORY DATA: Hemoglobin was noted to be 13.4, hematocrit 37.7, white blood cell count 12.96, platelets 158. Sodium noted to be 130, potassium 4.8, chloride 107, CO2 27, BUN 17, creatinine 0.5, glucose 96. Chest x-ray borderline cardiomegaly. CT head, no acute pathology. R Shoulder x-ray subcapital impacted fracture, right humeral neck. Pelvis x-ray impacted subcapital fracture, right femur. Chronic postop changes on the left proximal femur. EKG as per my interpretation NSR, diffuse T-wave flattening ASSESSMENT: 1. Right femoral fracture, right humeral fracture secondary to mechanical fall. 2. Hypertension, likely situational possibly chronic with borderline cardiomegaly on chest x-ray. 3. Chronic hyponatremia. 4. History of cerebrovascular accident, off aspirin as per patient preference PLAN: [facility] Orthopedics consult RE right hip fracture, right humeral fracture. (ER provider already in touch with [facility] relocation specialist. Patient requesting for Dr. Diaz.) analgesia, monitor BP. May need initiation of maintenance hypertensive if BP continues to be elevated. Follow sodium. May need fluid restriction if w/ further drop. DVT prophylaxis, SCDs for now RE possible surgery Consider pharmacologic anticoagulation with Lovenox 30 mg SQ daily once bleeding risk is deemed to be minimal and negligible following Orthopedics evaluation. PT, OT evaluation Social service RE DC planning Full code. No medical contraindication to surgery if contemplated by Orthopedics following evaluation in AM. The patient to go for surgery. MTDD
[2017-12-02] MEDS: DOCUSATE SODIUM/SENNA 50/8.6MG TAB PO SCH (22:40)
[2017-12-02 22:51] VITALS: BP 132/68; PULSE 71; TEMP 36.9; O2SAT 100
[2017-12-03] VITALS (9 sets, daily range): BP systolic 111–154; BP diastolic 65–83; PULSE 61–94; TEMP 36.5–37.2; O2SAT 95–100; Ht 154.9 cm; Wt 56.1 kg
[2017-12-03] MEDS: MoRPHine SULFATE 4 MG/ML 1 ML CARP\\VIAL IV PRN ×2 (02:12→19:51)
[2017-12-03] MEDS ORDERED: LORAZEPAM 0.5 MG TAB PO ONE (02:45)
[2017-12-03 06:18] LABS: CALCIUM 8.1 mg/dl (8.5-10.1); CREATININE 0.59 mg/dl (0.60-1.20); POTASSIUM 4.6 mmol/L (3.5-5.1)
[2017-12-03] MEDS ORDERED: LIDOCAINE HCL 2% 2 ML VIAL (20MG/ML) ONE (06:42)
[2017-12-03] MEDS ORDERED: PROPOFOL IV EMULSION 10 MG/ML 20 ML VIAL IV ONE (06:42)
[2017-12-03] MEDS ORDERED: FENTANYL CITRATE INJ 50 MCG/1 ML 2 ML VIAL ONE (06:42)
[2017-12-03] MEDS ORDERED: MIDAZOLAM HCL 1 MG/ML 2ML VIAL ONE (06:43)
[2017-12-03 06:59] LABS: BASO % 0.1 %; BASO ABS # 0.01 K/uL (0-0.2); EOS % 0.1 %; EOS ABS # 0.01 K/uL (0-0.5); HEMATOCRIT 33.7 % (37-47); IG# 0.04 K/uL (0.00-0.02); LYMPH % 9.4 %; LYMPH ABS # 1.17 K/uL (1.2-3.4); MEAN CELL VOLUME 92.6 fL (80-100); MEAN CORPUSCULAR HEMOGLOBIN 30.2 pg (25-34); MEAN CORPUSCULAR HGB CONC 32.6 g/dl (32-36); MONO % 6.3 %; MONO ABS # 0.78 K/uL (0.11-0.59); NEUT % 83.8 %; NEUT ABS # 10.38 K/uL (1.4-6.5); RED CELL DISTRIBUTION WIDTH CV 13.8 % (11.5-14.5); RED CELL DISTRIBUTION WIDTH SD 47.1 fL (36.4-46.3); WHITE BLOOD COUNT 12.39 K/uL (4.8-10.8)
[2017-12-03] MEDS ORDERED: BUPIVACAINE 0.5 % 5 MG/1 ML PF 10ML VIAL ONE (07:15)
--- NOTE | 2017-12-03 07:41 | CONSULTATION REPORT ---
DATE OF CONSULTATION: 12/03/2017 CHIEF COMPLAINT: Right shoulder and right hip pain. SUBJECTIVE: The patient is an 87-year-old female who [facility] [place] [facility]. She was brought into the [facility] ED for evaluation. She denies any head, neck or back pain. She had complaints about the right shoulder and right hip. X-rays of the right shoulder showed a nondisplaced proximal humerus fracture. X-rays of the right hip showed an impacted subcapital fracture. An orthopedics consult was asked for. This morning the patient is resting comfortably in bed. Her right upper extremity is in a sling. She is alert, well spoken. She denies significant pain. She states she lives alone at home and is very functional. She states she does not take any prescription medications: Her fingers are mobile in the right upper extremity. The shoulder is moderately irritable to any range of motion. The toes are mobile in the right lower extremity. The hip is moderately irritable to log roll. There are no abrasions and the skin is clean in the lateral hip region. X-RAYS: X-rays of the shoulder were reviewed and show a minimally displaced proximal humerus fracture. X-rays of the right hip were reviewed and show an impacted subcapital femoral neck fracture. She does have a trochanteric nail in her left hip. ASSESSMENT: 1. Minimally displaced right proximal humerus fracture. 2. Impacted subcapital femoral neck fracture. PLAN: The above discussed with the patient. We would recommend ORIF with 3 cannulated screws of the right hip. This would enable us to get her up and moving earlier which would minimize risk of DVT, pneumonia and/or pressure sores. She understands that having the proximal humerus fracture does make it more difficult as she will not be able to bear weight on the right upper extremity as well. The right proximal humerus fracture will be treated closed with a sling. The patient states she is interested in going to [facility] for rehab upon discharge from the hospital. Dr. Rainey will see her shortly and the plan is to proceed with operative fixation of the right hip fracture. DARIN
[2017-12-03] MEDS ORDERED: KETAMINE HCL INJ 50 MG/ML 10 ML VIAL ONE (07:54)
[2017-12-03] MEDS ORDERED: SODIUM CHLORIDE 0.9% INJ 10 ML VIAL ONE (07:55)
[2017-12-03] MEDS ORDERED: EpHEDrine SULFATE 50MG/5ML SYR ONE (08:52)
[2017-12-03] MEDS ORDERED: NALOXONE HCL 0.4 MG/1 ML VIAL/CARP IV PRN (09:00)
[2017-12-03] MEDS ORDERED: HYDROmorphone INJ 2 MG/ML SYR/VIAL IV PRN (09:00)
[2017-12-03] MEDS ORDERED: LABETALOL HCL IV 5 MG/ML 20ML IV PRN (09:00)
[2017-12-03] MEDS ORDERED: ATROPINE SULFATE 0.1 MG/ML 5ML SYR IV PRN (09:00)
[2017-12-03] MEDS ORDERED: ONDANSETRON INJ 2 MG/ML 2 ML VIAL IV PRN (09:00)
[2017-12-03] MEDS ORDERED: FLUMAZENIL 0.1 MG/1 ML 10 ML VIAL IV PRN (09:00)
[2017-12-03] MEDS ORDERED: PHENYLEPHRINE 100MCG/ML 5ML SYR IV PRN (09:00)
[2017-12-03] MEDS ORDERED: FENTANYL CITRATE INJ 50 MCG/1 ML 2 ML VIAL IV PRN (09:00)
[2017-12-03] MEDS ORDERED: EpHEDrine SULFATE INJ 50 MG/ML AMP IV PRN (09:00)
[2017-12-03] MEDS ORDERED: MEPERIDINE HCL 25 MG/ML CARP IV PRN (09:00)
[2017-12-03] MEDS ORDERED: BUPIVACAINE/EPINEPHRINE 0.5% MPF 1:200,000 30 ML VIAL ONE (09:11)
--- NOTE | 2017-12-03 09:26 | [facility] Post Operative Brief Note ---
Immediate Operative Summary Operative Date Dec 03, 2017. Pre-Operative Diagnosis 1. Right minimally displaced Femoral Neck fracture 2. Right Minimally displaced proximal humerus fracture Post-Operative Diagnosis 1. Right minimally displaced Femoral Neck fracture 2. Right Minimally displaced proximal humerus fracture Procedure(s) Performed 1.Open Reduction Internal Fixation of Right Femoral Neck fracture with Synthes Cannulated Screws 2. Closed treatment right proximal humerus fracture with sling Surgeon Dr. Jah Rainey Sock Lining Stitcher Surgeon(s) none Estimated Blood Loss 10mL Findings Consistent with Post-Op Diagnosis Specimens None, Per Surgeon Drains None Anesthesia Type Spinal MAC (local) Complication(s) none Disposition Accompanied Pt To Recover: no Disposition: Recovery Room / PACU
--- NOTE | 2017-12-03 09:56 | DIAGNOSTIC IMAGING REPORT ---
INTRAOPERATIVE RADIOGRAPHS CLINICAL HISTORY: Open reduction and internal fixation of the right hip. Fluoroscopy time: 74 seconds. FINDINGS: 2 spot fluoroscopic views of the right hip are correlated with pelvic radiograph dated 12/02/2017. 3 intertrochanteric cortical lag screws have been placed, transfixing a subcapital fracture of the right femur. Near-anatomic alignment is maintained. The orthopedic hardware appears intact. IMPRESSION: Intraoperative images from open reduction and internal fixation of a right femoral fracture as above. Electronically signed by: Anibal Wright M.D. 12/03/2017 9:54 AM Dictated Date/Time: 12/03/2017 9:53 AM
--- NOTE | 2017-12-03 09:58 | DIAGNOSTIC IMAGING REPORT ---
RIGHT HIP 2 VIEWS CLINICAL HISTORY: Postoperative examination. Open reduction and internal fixation of the right hip. FINDINGS: AP and crosstable lateral portable views of the right hip are correlated with pelvic radiograph dated 12/02/2017. The skeletal structures are osteopenic. 3 intertrochanteric cortical lag screws have been placed, transfixing a subcapital fracture of the right femur. Near-anatomic alignment is maintained. The orthopedic hardware appears intact. There are expected postoperative changes overlying the right hip including subcutaneous gas, soft tissue swelling and skin clips. The visualized right hemipelvis appears intact. Phlebolith are noted in the pelvis. IMPRESSION: Postoperative changes from open reduction and internal fixation of a right femoral fracture as above. Electronically signed by: Anibal Wright M.D. 12/03/2017 9:56 AM Dictated Date/Time: 12/03/2017 9:54 AM
--- NOTE | 2017-12-03 10:30 | OPERATIVE REPORT ---
DATE OF OPERATION: 12/03/2017 PREOPERATIVE DIAGNOSES: 1. Right minimally displaced femoral neck fracture. 2. Right minimally displaced proximal humerus fracture. POSTOPERATIVE DIAGNOSES: Same as above. PROCEDURES: 1. Open reduction and internal fixation of right femoral neck fracture with Synthes cannulated screws x3. 2. Closed treatment of right proximal humerus fracture with application of sling. SURGEON: Dr. Jah Rainey. ADJUNCT PROFESSOR: None. ANESTHESIA: Spinal with sedation and local anesthetic. SPECIMENS: None. DRAINS: None. COMPLICATIONS: None. BLOOD LOSS: 10 mL. PERTINENT HISTORY: This is an 87-year-old female with a recent history of a fall while ambulating. She fell on to her right upper extremity and her right hip. She was unable to ambulate. She presented to [facility] via EMS and was evaluated radiographically and clinically and noted to have the above noted fractures and was then admitted to the hospital for surgical optimization and then medical clearance for surgery. The patient was then scheduled for surgery as indicated. All potential risks, benefits, complications, alternatives, rehab, potential for incomplete relief of symptoms, need for further surgery, DVT, PE, , persistent pain, swelling, scarring, weakness, neurovascular injury, wound complications, hardware failure, nonunion, malunion, and bone fracture were discussed with the patient. The patient decided to proceed with the procedure as indicated. DESCRIPTION OF PROCEDURE: The patient was taken to the operative suite, placed supine on the operating room table. The consent was reviewed and proper operative site was identified and then anesthesia was administered appropriately. Next, the patient was placed on the fracture table. The affected limb was placed into padded boot traction and the unaffected leg was placed in a well leg saez, flexed and abducted and slightly externally rotated. The well leg was then padded and protected. All other bony prominences were properly padded and protected. The post was padded in the perineum. Next, the affected limb was placed under appropriate traction using the fracture table and initial reduction was performed under live fluoroscopic assistance. Next, the affected hip was then sterilely prepped and draped in usual fashion. The right proximal humerus was known to have been fractured as a result of her initial injury. The fracture was noted to have minimal displacement and overall stable alignment in the initial radiographs obtained in the Emergency Department. A decision was made to treat her proximal humerus fracture closed and conservatively with a sling. The patient's arm was placed into a well fitting sling and positioned carefully prior to surgery and properly padded and protected. Next, the greater trochanter of the hip was visualized under C-arm fluoroscopy. A 10 blade scalpel incision was made along the lateral aspect of the hip inferior to the greater trochanter. This incision was then carefully deepened through subcutaneous tissue. Meticulous hemostasis was achieved with electrocautery. Next, the iliotibial band was then incised with a 10 blade scalpel and appropriate bleeders were cauterized as well. Next, using live fluoroscopic assistance 7.3 mm cannulated guide pin was placed into the central aspect of the lateral femur directed into the inferior one-third of the femoral neck and head, inferior and central both confirmed with AP and lateral projections. Next, the cannulated guide was then used to place 2 further 7.3 mm cannulated screw guide pins superior anterior and superior posterior in relation to the initial inferiorly placed guide pin under AP and lateral live fluoroscopic assistance. Next, the guide pins were all noted to be within 5 mm of the subchondral bone of the femoral head in both AP and lateral fluoroscopic projections. This was then followed by measurement of the appropriate length for planned screw implantation and then the lateral cortex was drilled, this was followed by countersinking of the planned screw sites followed by implantation of the 7.3 mm cannulated screws of appropriate length. This was confirmed under live fluoroscopic assistance. Next, a hand screwdriver was used to tighten the screws to fully seat the screws and compress the fracture confirmed using fluoroscopy. Next, the guide pins were removed. The wound was copiously irrigated with sterile normal saline. Final fluoroscopic images were obtained in both AP and lateral projections, followed by final irrigation with sterile normal saline, closure of the fascia with interrupted #1 Vicryl sutures, closure of the dermis with buried interrupted 2-0 Vicryl. The skin was then closed using skin harsha. 0.5% Marcaine with epinephrine was Injected in around the incision site for postoperative pain control. A sterile compressive dressing was applied. The patient was awakened and taken to recovery in stable condition. I attest to the content of the Intraoperative Record and any orders documented therein. Any exceptions are noted below. DARIN
--- NOTE | 2017-12-03 10:37 | Anesthesiology Progress Note ---
Anesthesia Post Op Note Date & Time Dec 03, 2017 at 10:36 Vital Signs Pain Intensity: 0 Vital Signs Past 12 Hours Date Time Temp Pulse Resp B/P (MAP) Pulse Ox O2 Delivery O2 Flow Rate FiO2 12/03/17 10:20 63 12 102/56 99 Nasal Cannula 2 12/03/17 10:10 69 14 104/52 99 Nasal Cannula 2 12/03/17 10:00 36.6 62 14 94/47 99 Nasal Cannula 2 12/03/17 09:50 66 14 100/65 99 Nasal Cannula 2 12/03/17 09:40 65 14 105/56 98 Nasal Cannula 2 12/03/17 09:30 36.7 65 16 95/41 94 Nasal Cannula 2 12/03/17 06:56 37.2 63 16 126/76 (93) 100 Nasal Cannula 3.0 12/03/17 02:04 124/69 (87) 12/03/17 00:05 Nasal Cannula 2.0 12/02/17 22:51 36.9 71 16 132/68 (89) 100 Nasal Cannula 2.0 Notes Mental Status: alert / awake / arousable, participated in evaluation Pt Amnestic to Procedure: Yes Nausea / Vomiting: adequately controlled Pain: adequately controlled Airway Patency, RR, SpO2: stable & adequate BP & HR: stable & adequate Hydration State: stable & adequate Neuraxial Anesthesia: was administered, sensory block is resolving Anesthetic Complications: no major complications apparent
[2017-12-03] MEDS: ASPIRIN 81 MG ECTAB PO SCH ×2 (12:48→19:54)
[2017-12-03] MEDS ORDERED: NURSING VERBAL MED ORDER ONE (13:15)
[2017-12-03] MEDS: CEFAZOLIN IV 1,000 MG in SYRINGE 0 ML IV SCH (16:18)
[2017-12-03] MEDS: TRAMADOL HCL 50 MG TAB PO PRN (16:18)
--- NOTE | 2017-12-03 18:33 | Progress Note ---
Subjective Date of Service: Dec 03, 2017. Subjective Pt evaluation today including: conversation w/ patient, physical exam, lab review, review of studies, review of inpatient medication list Saw/examined the patient in room 387 She is doing well, does c/o pain at the hip seems anxious Pleasant, no other issues to note. Problem List Medical Problems: (1) Fall Status: Acute (2) Femur fracture, right Status: Acute (3) Fracture of humerus, right, closed Status: Acute (4) Intertrochanteric fracture of left hip Status: Acute (5) Left-sided weakness Status: Acute Review of Systems Constitutional: No fever, No chills, No weakness Respiratory: No cough, No sputum, No shortness of breath Cardiac: No chest pain Abdomen: No pain, No nausea, No vomiting, No diarrhea Musculoskeletal: + joint pain Psychiatric: + anxiety, + insomnia, No depression symptoms Medications Current Inpatient Medications Medications (Trade) Dose Ordered Sig/Aristeo Route Start Time Stop Time Status Last Admin Dose Admin Morphine Sulfate (MoRPHine SULFATE INJ) 4 mg Q3H PRN IV 12/02/17 20:45 12/16/17 20:44 12/03/17 02:12 4 MG Prochlorperazine Edisylate 5 mg/ Syringe 5 ml @ 5 mls/min Q6H PRN IV 12/02/17 20:45 01/01/18 20:44 Tramadol HCl (Ultram Tab) not relieved by tylenol @ Q6H PRN PO 12/02/17 20:45 01/01/18 20:44 12/03/17 16:18 50 MG Acetaminophen (Tylenol Tab) 650 mg Q4H PRN PO 12/02/17 20:45 01/01/18 20:44 Naloxone HCl (Narcan Inj) 0.1 mg PRN PRN IV 12/02/17 20:45 01/01/18 20:44 Senna/Docusate Sodium (Senokot S Tab) 2 tab HS PO 12/02/17 21:00 01/01/18 20:59 Polyethylene (Miralax Powder Packet) 17 gm DAILY PRN PO 12/02/17 20:45 01/01/18 20:44 Magnesium Hydroxide (Milk Of Magnesia Susp) 30 ml DAILY PRN PO 12/02/17 20:45 01/01/18 20:44 Bisacodyl (Dulcolax Supp) 10 mg DAILY PRN [place] 12/02/17 20:45 01/01/18 20:44 Sodium Biphosphate/ Sodium Phosphate (Fleet Enema) 132 ml PRN PRN [place] 12/02/17 20:45 Aspirin (Ecotrin Tab) 81 mg BID PO 12/03/17 09:00 01/02/18 08:59 12/03/17 12:48 81 MG Cefazolin Sodium 1000 mg/Syringe 7.5 ml @ 2.5 mls/min Q8H IV 12/03/17 16:00 12/04/17 00:35 12/03/17 16:18 2.5 MLS/MIN Objective Vital Signs Date Time Temp Pulse Resp B/P (MAP) Pulse Ox O2 Delivery O2 Flow Rate FiO2 12/03/17 15:11 36.7 94 20 141/69 (93) 96 Room Air 12/03/17 14:00 36.5 74 16 138/73 (94) 96 Room Air 12/03/17 13:00 37.0 71 16 136/65 (88) 12/03/17 12:00 36.7 69 18 149/68 (95) 100 Nasal Cannula 2.0 12/03/17 11:30 36.7 75 20 154/83 (106) 97 Nasal Cannula 2.0 12/03/17 11:00 36.5 61 16 111/66 (81) 100 Nasal Cannula 2.0 12/03/17 11:00 97 Nasal Cannula 2.0 12/03/17 11:00 100 Nasal Cannula 2.0 12/03/17 10:40 65 12 101/45 97 Nasal Cannula 2 12/03/17 10:30 36.6 60 12 98/69 100 Nasal Cannula 2 12/03/17 10:20 63 12 102/56 99 Nasal Cannula 2 12/03/17 10:10 69 14 104/52 99 Nasal Cannula 2 12/03/17 10:00 36.6 62 14 94/47 99 Nasal Cannula 2 12/03/17 09:50 66 14 100/65 99 Nasal Cannula 2 12/03/17 09:40 65 14 105/56 98 Nasal Cannula 2 12/03/17 09:30 36.7 65 16 95/41 94 Nasal Cannula 2 12/03/17 06:56 37.2 63 16 126/76 (93) 100 Nasal Cannula 3.0 12/03/17 02:04 124/69 (87) 12/03/17 00:05 Nasal Cannula 2.0 12/02/17 22:51 36.9 71 16 132/68 (89) 100 Nasal Cannula 2.0 12/02/17 21:20 37.5 66 20 93/54 97 Nasal Cannula 2.0 12/02/17 21:20 37.5 66 20 93/54 (67) 97 Nasal Cannula 2.0 12/02/17 20:38 73 20 123/75 95 Room Air 12/02/17 20:13 69 12/02/17 18:48 87 24 157/91 95 Room Air Physical Exam General Appearance: + mild distress Respiratory/Chest: lungs clear, normal breath sounds, no respiratory distress, no accessory muscle use Cardiovascular: regular rate, rhythm Extremities: normal inspection, no pedal edema Neurologic/Psychiatric: alert, normal mood/affect, + pertinent finding ( anxious appearing) Laboratory Results Last 24 Hours Test 12/02/17 19:05 12/02/17 21:13 12/03/17 04:57 12/03/17 06:43 White Blood Count 12.96 K/uL 12.39 K/uL Red Blood Count 4.17 M/uL 3.64 M/uL Hemoglobin 13.4 g/dL 11.0 g/dL Hematocrit 37.7 % 33.7 % Mean Corpuscular Volume 90.4 fL 92.6 fL Mean Corpuscular Hemoglobin 32.1 pg 30.2 pg Mean Corpuscular Hemoglobin Concent 35.5 g/dl 32.6 g/dl Platelet Count 158 K/uL K/uL Mean Platelet Volume 11.7 fL fL Neutrophils (%) (Auto) 84.6 % 83.8 % Lymphocytes (%) (Auto) 10.3 % 9.4 % Monocytes (%) (Auto) 4.3 % 6.3 % Eosinophils (%) (Auto) 0.2 % 0.1 % Basophils (%) (Auto) 0.1 % 0.1 % Neutrophils # (Auto) 10.98 K/uL 10.38 K/uL Lymphocytes # (Auto) 1.33 K/uL 1.17 K/uL Monocytes # (Auto) 0.56 K/uL 0.78 K/uL Eosinophils # (Auto) 0.02 K/uL 0.01 K/uL Basophils # (Auto) 0.01 K/uL 0.01 K/uL RDW Standard Deviation 45.1 fL 47.1 fL RDW Coefficient of Variation 13.6 % 13.8 % Immature Granulocyte % (Auto) 0.5 % 0.3 % Immature Granulocyte # (Auto) 0.06 K/uL 0.04 K/uL Prothrombin Time 10.1 SECONDS Prothromb Time International Ratio 1.0 Activated Partial Thromboplast Time 26.8 SECONDS Partial Thromboplastin Ratio 1.0 Sodium Level 130 mmol/L 131 mmol/L 131 mmol/L Potassium Level 3.8 mmol/L 4.6 mmol/L Chloride Level 97 mmol/L 98 mmol/L Carbon Dioxide Level 27 mmol/L 26 mmol/L Anion Gap 6.0 mmol/L 7.0 mmol/L Blood Urea Nitrogen 17 mg/dl 20 mg/dl Creatinine 0.56 mg/dl 0.59 mg/dl Est Creatinine Clear Calc Drug Dose 54.4 ml/min 51.6 ml/min Estimated GFR () 97.9 96.2 Estimated GFR (Non- 84.4 83.0 BUN/Creatinine Ratio 30.0 33.5 Random Glucose 96 mg/dl 106 mg/dl Calcium Level 9.0 mg/dl 8.1 mg/dl Magnesium Level 2.1 mg/dl Total Bilirubin 0.3 mg/dl Direct Bilirubin 0.1 mg/dl Aspartate Amino Transf (AST/SGOT) 47 U/L Alanine Aminotransferase (ALT/SGPT) 38 U/L Alkaline Phosphatase 101 U/L Total Protein 7.7 gm/dl Albumin 3.9 gm/dl Thyroid Stimulating Hormone (TSH) 2.350 uIu/ml Platelet Count, Citrate 213 10^3/uL Assessment and Plan This is an 87 year old female with a PMH of chronic hyponatremia, urinary retention, neuropathy - presents with a mechanical fall and R hip and shoulder fracture Mechanical Fall R Hip and Shoulder Fracture - s/p repair, POD #0 - ORIF of the R hip - patient c/o pain, will try alternating doses of morphine and tramadol, can add percocet if pain not controlled - added Ativan for anxiety; patient states she may be anxious - monitor H/H - further management as per ortho Chronic Hyponatremia - Na = 131 and stable, monitor DVT ppx - ASA 81mg BID as per ortho FULL CODE
[2017-12-03] MEDS: LORAZEPAM 1 MG TAB PO PRN (19:51)
[2017-12-03] MEDS: DOCUSATE SODIUM/SENNA 50/8.6MG TAB PO SCH (19:52)
[2017-12-04] MEDS: CEFAZOLIN IV 1,000 MG in SYRINGE 0 ML IV SCH (00:15)
[2017-12-04 03:55] VITALS: BP 130/74; PULSE 68; TEMP 37.1; O2SAT 94
[2017-12-04 07:12] VITALS: BP 130/69; PULSE 68; TEMP 37.6; O2SAT 95
[2017-12-04 07:35] LABS: CREATININE 0.62 mg/dl (0.60-1.20); POTASSIUM 4.6 mmol/L (3.5-5.1)
[2017-12-04 07:39] LABS: HEMATOCRIT 33.1 % (37-47); HEMOGLOBIN 11.3 g/dL (12.0-16.0); MEAN CELL VOLUME 92.7 fL (80-100); MEAN CORPUSCULAR HEMOGLOBIN 31.7 pg (25-34); MEAN CORPUSCULAR HGB CONC 34.1 g/dl (32-36); RED CELL DISTRIBUTION WIDTH CV 14.2 % (11.5-14.5); RED CELL DISTRIBUTION WIDTH SD 48.6 fL (36.4-46.3); WHITE BLOOD COUNT 10.89 K/uL (4.8-10.8)
--- NOTE | 2017-12-04 08:49 | Orthopedic Progress Note ---
Orthopedic Progress Note Date of Service Dec 04, 2017. Subjective Post OP Day: 1 Reports: feeling well Objective calves soft nontender, N/V intact, dressing C/D/I, toes mobile Sling in place right UE, fingers mobile Date Time Temp Pulse Resp B/P (MAP) Pulse Ox O2 Delivery O2 Flow Rate FiO2 12/04/17 07:12 37.6 68 16 130/69 (89) 95 Room Air 12/04/17 03:55 37.1 68 16 130/74 (92) 94 Room Air 12/04/17 00:00 Room Air 12/03/17 22:45 36.9 74 16 131/68 (89) 95 Room Air 12/03/17 16:15 Room Air 12/03/17 15:11 36.7 94 20 141/69 (93) 96 Room Air 12/03/17 14:00 36.5 74 16 138/73 (94) 96 Room Air 12/03/17 13:00 37.0 71 16 136/65 (88) 12/03/17 12:00 36.7 69 18 149/68 (95) 100 Nasal Cannula 2.0 12/03/17 11:30 36.7 75 20 154/83 (106) 97 Nasal Cannula 2.0 12/03/17 11:00 36.5 61 16 111/66 (81) 100 Nasal Cannula 2.0 12/03/17 11:00 97 Nasal Cannula 2.0 12/03/17 11:00 100 Nasal Cannula 2.0 12/03/17 10:40 65 12 101/45 97 Nasal Cannula 2 12/03/17 10:30 36.6 60 12 98/69 100 Nasal Cannula 2 12/03/17 10:20 63 12 102/56 99 Nasal Cannula 2 12/03/17 10:10 69 14 104/52 99 Nasal Cannula 2 12/03/17 10:00 36.6 62 14 94/47 99 Nasal Cannula 2 12/03/17 09:50 66 14 100/65 99 Nasal Cannula 2 12/03/17 09:40 65 14 105/56 98 Nasal Cannula 2 12/03/17 09:30 36.7 65 16 95/41 94 Nasal Cannula 2 Laboratory Results 24 Hours: Test 12/04/17 06:29 Hematocrit 33.1 % Hemoglobin 11.3 g/dL Assessment & Plan Assessment: 87 yo female stable POD #1 s/p right hip pinning, also with ipsilateral nonoperative prox humerus fracture Plan: 1. Med management 2. DVT prophylaxis- ASA, SCDs 3. PT/OT 4. D/C planning- pt interested in [facility], transfer per medicine
--- NOTE | 2017-12-04 08:51 | Consultant Recommendations ---
Group Manager Recommendations Date of Service Dec 04, 2017. Group Manager Recommendations Nonweightbearing right lower and right upper extremities. May leave hip wounds uncovered when dry. Sling right UE, pt may move elbow, wrist, and hand. Ice to hip and shoulder for discomfort as needed. Follow-up with Dr Rainey ~ 10-14 days, call [phone] for appt.
[2017-12-04] MEDS: LORAZEPAM 1 MG TAB PO PRN (09:45)
[2017-12-04] MEDS: ASPIRIN 81 MG ECTAB PO SCH ×2 (09:45→21:07)
[2017-12-04] MEDS: TRAMADOL HCL 50 MG TAB PO PRN (09:45)
--- NOTE | 2017-12-04 15:05 | Progress Note ---
Subjective Date of Service: Dec 04, 2017. Subjective Pt evaluation today including: conversation w/ patient, physical exam, lab review, review of studies, review of inpatient medication list Saw/examined the patient in room 387 had some confusion earlier today states her pain is still only intermittently controlled Problem List Medical Problems: (1) Fall Status: Acute (2) Femur fracture, right Status: Acute (3) Fracture of humerus, right, closed Status: Acute (4) Intertrochanteric fracture of left hip Status: Acute (5) Left-sided weakness Status: Acute Review of Systems Constitutional: No fever, No chills Respiratory: No cough, No sputum, No shortness of breath Cardiac: No chest pain Abdomen: No pain, No nausea, No vomiting, No diarrhea Musculoskeletal: + joint pain Neurologic: + weakness, + problem reported (confusion) Medications Current Inpatient Medications Medications (Trade) Dose Ordered Sig/Aristeo Route Start Time Stop Time Status Last Admin Dose Admin Morphine Sulfate (MoRPHine SULFATE INJ) 4 mg Q3H PRN IV 12/02/17 20:45 12/16/17 20:44 12/03/17 19:51 4 MG Prochlorperazine Edisylate 5 mg/ Syringe 5 ml @ 5 mls/min Q6H PRN IV 12/02/17 20:45 01/01/18 20:44 Tramadol HCl (Ultram Tab) not relieved by tylenol @ Q6H PRN PO 12/02/17 20:45 01/01/18 20:44 12/04/17 09:45 50 MG Acetaminophen (Tylenol Tab) 650 mg Q4H PRN PO 12/02/17 20:45 01/01/18 20:44 Naloxone HCl (Narcan Inj) 0.1 mg PRN PRN IV 12/02/17 20:45 01/01/18 20:44 Senna/Docusate Sodium (Senokot S Tab) 2 tab HS PO 12/02/17 21:00 01/01/18 20:59 12/03/17 19:52 2 TAB Polyethylene (Miralax Powder Packet) 17 gm DAILY PRN PO 12/02/17 20:45 01/01/18 20:44 Magnesium Hydroxide (Milk Of Magnesia Susp) 30 ml DAILY PRN PO 12/02/17 20:45 01/01/18 20:44 Bisacodyl (Dulcolax Supp) 10 mg DAILY PRN [place] 12/02/17 20:45 01/01/18 20:44 Sodium Biphosphate/ Sodium Phosphate (Fleet Enema) 132 ml PRN PRN [place] 12/02/17 20:45 Aspirin (Ecotrin Tab) 81 mg BID PO 12/03/17 09:00 01/02/18 08:59 12/04/17 09:45 81 MG Lorazepam (Ativan Tab) 1 mg Q4 PRN PO 12/03/17 18:30 01/02/18 18:29 12/04/17 09:45 1 MG Objective Vital Signs Date Time Temp Pulse Resp B/P (MAP) Pulse Ox O2 Delivery O2 Flow Rate FiO2 12/04/17 08:20 Room Air 12/04/17 07:12 37.6 68 16 130/69 (89) 95 Room Air 12/04/17 03:55 37.1 68 16 130/74 (92) 94 Room Air 12/04/17 00:00 Room Air 12/03/17 22:45 36.9 74 16 131/68 (89) 95 Room Air 12/03/17 16:15 Room Air 12/03/17 15:11 36.7 94 20 141/69 (93) 96 Room Air Physical Exam General Appearance: no apparent distress, + pertinent finding (lethargic) Respiratory/Chest: no respiratory distress, no accessory muscle use Cardiovascular: regular rate, rhythm, no edema, no murmur Neurologic/Psychiatric: + pertinent finding (R arm in sling; decreased and painful ROM) Laboratory Results Last 24 Hours Test 12/04/17 06:29 12/04/17 07:52 White Blood Count 10.89 K/uL Red Blood Count 3.57 M/uL Hemoglobin 11.3 g/dL Hematocrit 33.1 % Mean Corpuscular Volume 92.7 fL Mean Corpuscular Hemoglobin 31.7 pg Mean Corpuscular Hemoglobin Concent 34.1 g/dl RDW Standard Deviation 48.6 fL RDW Coefficient of Variation 14.2 % Platelet Count K/uL Mean Platelet Volume fL Sodium Level 129 mmol/L Potassium Level 4.6 mmol/L Chloride Level 97 mmol/L Carbon Dioxide Level 27 mmol/L Anion Gap 5.0 mmol/L Blood Urea Nitrogen 18 mg/dl Creatinine 0.62 mg/dl Est Creatinine Clear Calc Drug Dose 49.1 ml/min Estimated GFR () 94.6 Estimated GFR (Non- 81.6 BUN/Creatinine Ratio 29.5 Random Glucose 132 mg/dl Calcium Level 8.0 mg/dl Platelet Count, Citrate 184 10^3/uL Assessment and Plan This is an 87 year old female with a PMH of chronic hyponatremia, urinary retention, neuropathy - presents with a mechanical fall and R hip and shoulder fracture Mechanical Fall R Hip and Shoulder Fracture 4/ - POD #1 - s/p ORIF of R hip - monitor H/H - continue Tramadol PRN, continue Ativan PRN - plan to d/c to [facility] in 1-2 days - nonweightbearing on R LE - outpatient ortho follow-up in 10-14 days 12/03 - s/p repair, POD #0 - ORIF of the R hip - patient c/o pain, will try alternating doses of morphine and tramadol, can add percocet if pain not controlled - added Ativan for anxiety; patient states she may be anxious - monitor H/H - further management as per ortho Chronic Hyponatremia - Na = 131 and stable, monitor DVT ppx - ASA 81mg BID as per ortho FULL CODE
[2017-12-04 15:18] VITALS: BP 144/85; PULSE 68; TEMP 37; O2SAT 95
[2017-12-04] MEDS: DOCUSATE SODIUM/SENNA 50/8.6MG TAB PO SCH (21:06)
[2017-12-04] MEDS: MoRPHine SULFATE 4 MG/ML 1 ML CARP\\VIAL IV PRN (21:06)
[2017-12-04 22:50] VITALS: BP 157/66; PULSE 86; TEMP 37.5; O2SAT 93
[2017-12-04 22:53] VITALS: TEMP 37.4
[2017-12-05] VITALS (7 sets, daily range): BP systolic 147–154; BP diastolic 74–82; PULSE 74–87; TEMP 37.1–37.4; O2SAT 94–96
[2017-12-05 07:31] LABS: CALCIUM 8.1 mg/dl (8.5-10.1); CREATININE 0.46 mg/dl (0.60-1.20); HEMOGLOBIN 10.6 g/dL (12.0-16.0); MEAN CELL VOLUME 92.3 fL (80-100); MEAN CORPUSCULAR HEMOGLOBIN 31.5 pg (25-34); MEAN CORPUSCULAR HGB CONC 34.2 g/dl (32-36); POTASSIUM 4.4 mmol/L (3.5-5.1); RED CELL DISTRIBUTION WIDTH CV 14.1 % (11.5-14.5); RED CELL DISTRIBUTION WIDTH SD 47.3 fL (36.4-46.3); WHITE BLOOD COUNT 10.57 K/uL (4.8-10.8)
--- NOTE | 2017-12-05 07:46 | Orthopedic Progress Note ---
Orthopedic Progress Note Date of Service Dec 05, 2017. Subjective Post OP Day: 2 Reports: complaints (painful off and on), Denies: chest pain, SOB, nausea / vomiting, light headedness, calf pain Objective calves soft nontender, N/V intact, dressing C/D/I, A&O x3, toes mobile Date Time Temp Pulse Resp B/P (MAP) Pulse Ox O2 Delivery O2 Flow Rate FiO2 12/05/17 07:25 37.3 78 20 150/74 (99) 95 Room Air 12/04/17 23:15 Room Air 12/04/17 22:53 37.4 12/04/17 22:50 37.5 86 16 157/66 (96) 93 Room Air 12/04/17 15:35 Room Air 12/04/17 15:18 37.0 68 18 144/85 (104) 95 Room Air 12/04/17 08:20 Room Air Laboratory Results 24 Hours: Test 12/05/17 06:39 Hematocrit 31.0 % Hemoglobin 10.6 g/dL Assessment & Plan Assessment: 87 yo female stable POD #2 s/p right hip pinning, also with ipsilateral nonoperative prox humerus fracture Plan: 1. Med management 2. DVT prophylaxis- ASA, SCDs 3. PT/OT 4. D/C planning- pt interested in [facility], transfer per medicine Inhouse Planning Pain Management: Ultram, Morphine, PO Tylenol DVT Prophylaxis: TEDs, SCDs, ASA Discharge Planning Discharge Planning: rehab hospital
[2017-12-05] MEDS: ASPIRIN 81 MG ECTAB PO SCH ×2 (09:11→20:39)
--- NOTE | 2017-12-05 10:40 | Progress Note ---
Subjective Date of Service: Dec 05, 2017. Subjective Pt evaluation today including: conversation w/ patient, physical exam, lab review, review of inpatient medication list Saw/examined the patient in room 387 +anxious, +tired states pain is controlled with medications Problem List Medical Problems: (1) Fall Status: Acute (2) Femur fracture, right Status: Acute (3) Fracture of humerus, right, closed Status: Acute (4) Intertrochanteric fracture of left hip Status: Acute (5) Left-sided weakness Status: Acute Review of Systems Respiratory: No shortness of breath Cardiac: No chest pain Musculoskeletal: + joint pain (controlled with medications) Psychiatric: + anxiety, + insomnia Medications Current Inpatient Medications Medications (Trade) Dose Ordered Sig/Aristeo Route Start Time Stop Time Status Last Admin Dose Admin Morphine Sulfate (MoRPHine SULFATE INJ) 4 mg Q3H PRN IV 12/02/17 20:45 12/16/17 20:44 12/04/17 21:06 4 MG Prochlorperazine Edisylate 5 mg/ Syringe 5 ml @ 5 mls/min Q6H PRN IV 12/02/17 20:45 01/01/18 20:44 Tramadol HCl (Ultram Tab) not relieved by tylenol @ Q6H PRN PO 12/02/17 20:45 01/01/18 20:44 12/04/17 09:45 50 MG Acetaminophen (Tylenol Tab) 650 mg Q4H PRN PO 12/02/17 20:45 01/01/18 20:44 12/04/17 23:33 650 MG Naloxone HCl (Narcan Inj) 0.1 mg PRN PRN IV 12/02/17 20:45 01/01/18 20:44 Senna/Docusate Sodium (Senokot S Tab) 2 tab HS PO 12/02/17 21:00 01/01/18 20:59 12/04/17 21:06 2 TAB Polyethylene (Miralax Powder Packet) 17 gm DAILY PRN PO 12/02/17 20:45 01/01/18 20:44 Magnesium Hydroxide (Milk Of Magnesia Susp) 30 ml DAILY PRN PO 12/02/17 20:45 01/01/18 20:44 Bisacodyl (Dulcolax Supp) 10 mg DAILY PRN [place] 12/02/17 20:45 01/01/18 20:44 Sodium Biphosphate/ Sodium Phosphate (Fleet Enema) 132 ml PRN PRN [place] 12/02/17 20:45 Aspirin (Ecotrin Tab) 81 mg BID PO 12/03/17 09:00 01/02/18 08:59 12/05/17 09:11 81 MG Lorazepam (Ativan Tab) 1 mg Q4 PRN PO 12/03/17 18:30 01/02/18 18:29 12/04/17 09:45 1 MG Objective Vital Signs Date Time Temp Pulse Resp B/P (MAP) Pulse Ox O2 Delivery O2 Flow Rate FiO2 12/05/17 09:15 95 Room Air 12/05/17 09:15 Room Air 12/05/17 07:25 37.3 78 20 150/74 (99) 95 Room Air 12/04/17 23:15 Room Air 12/04/17 22:53 37.4 12/04/17 22:50 37.5 86 16 157/66 (96) 93 Room Air 12/04/17 15:35 Room Air 12/04/17 15:18 37.0 68 18 144/85 (104) 95 Room Air Physical Exam General Appearance: no apparent distress, + pertinent finding (+anxious appearing) Respiratory/Chest: no respiratory distress, no accessory muscle use Cardiovascular: regular rate, rhythm, no edema, no murmur Abdomen: normal bowel sounds, non tender, soft Extremities: + pertinent finding (decreased range of motion secondary to pain) Neurologic/Psychiatric: no motor/sensory deficits, alert, normal mood/affect Laboratory Results Last 24 Hours Test 12/05/17 06:39 White Blood Count 10.57 K/uL Red Blood Count 3.36 M/uL Hemoglobin 10.6 g/dL Hematocrit 31.0 % Mean Corpuscular Volume 92.3 fL Mean Corpuscular Hemoglobin 31.5 pg Mean Corpuscular Hemoglobin Concent 34.2 g/dl RDW Standard Deviation 47.3 fL RDW Coefficient of Variation 14.1 % Platelet Count K/uL Mean Platelet Volume fL Platelet Count, Citrate 221 10^3/uL Sodium Level 129 mmol/L Potassium Level 4.4 mmol/L Chloride Level 98 mmol/L Carbon Dioxide Level 24 mmol/L Anion Gap 7.0 mmol/L Blood Urea Nitrogen 18 mg/dl Creatinine 0.46 mg/dl Est Creatinine Clear Calc Drug Dose 66.2 ml/min Estimated GFR () 104.4 Estimated GFR (Non- 90.1 BUN/Creatinine Ratio 38.2 Random Glucose 128 mg/dl Calcium Level 8.1 mg/dl Assessment and Plan This is an 87 year old female with a PMH of chronic hyponatremia, urinary retention, neuropathy - presents with a mechanical fall and R hip and shoulder fracture Mechanical Fall R Hip and Shoulder Fracture 4/2 - POD #2 - patient is doing well - will stop IV morphine - use Tramadol PRN for pain - PT/OT - plan to d/c to [facility] today 4/ - POD #1 - s/p ORIF of R hip - monitor H/H - continue Tramadol PRN, continue Ativan PRN - plan to d/c to [facility] in 1-2 days - nonweightbearing on R LE - outpatient ortho follow-up in 10-14 days 12/03 - s/p repair, POD #0 - ORIF of the R hip - patient c/o pain, will try alternating doses of morphine and tramadol, can add percocet if pain not controlled - added Ativan for anxiety; patient states she may be anxious - monitor H/H - further management as per ortho Chronic Hyponatremia - Na = 131 and stable, monitor DVT ppx - ASA 81mg BID as per ortho FULL CODE
--- NOTE | 2017-12-05 12:33 | Clinical Documentation Query ---
CLINICAL DOCUMENTATION QUERY Dr. PERRIN, In your clinical opinion is this patient being managed for: ( X ) Likely osteoporotic fracture, right femur ( X ) Likely osteoporotic fracture, right humerus ( ) Not Agree ( ) Other explanation of clinical findings (Please Explain) ( ) Unable to determine (Please Define) ( ) Need to Discuss The medical record reflects the following clinical findings, treatment, and risk factors. Clinical Indicators: 87 yo female presenting with a fall. Xrays reveal osteopenic skeletal structures. Pt also has a prior history of a fall with L hip fracture Treatment: chronic meds include calcium citrate +, vitamin D3, ORIF R hip and closed reduction and sling for R humerus fx. Risk Factors: age, gender, Please clarify and document your clinical opinion in the progress notes and discharge summary. Terms such as "probable", "suspected", "likely", "questionable", "possible", or "still to be ruled out" are acceptable. IF IN AGREEMENT, YOU MUST DOCUMENT ABOVE DIAGNOSTIC STATEMENT IN DAILY PROGRESS NOTES AND DISCHARGE SUMMARY. This document is not part of the patient's record. Thank You, Maday Johnson RN [phone]
[2017-12-05] MEDS: DOCUSATE SODIUM/SENNA 50/8.6MG TAB PO SCH (20:39)
[2017-12-05] MEDS: TRAMADOL HCL 50 MG TAB PO PRN (20:40)
[2017-12-06] MEDS: TRAMADOL HCL 50 MG TAB PO PRN ×2 (03:34→17:40)
[2017-12-06 07:23] VITALS: BP 131/73; PULSE 73; TEMP 37.1; O2SAT 96
[2017-12-06 08:01] LABS: BASO % 0.1 %; BASO ABS # 0.01 K/uL (0-0.2); EOS % 1.5 %; EOS ABS # 0.13 K/uL (0-0.5); HEMATOCRIT 29.4 % (37-47); HEMOGLOBIN 10.2 g/dL (12.0-16.0); IG# 0.02 K/uL (0.00-0.02); LYMPH % 16.1 %; MEAN CELL VOLUME 91.3 fL (80-100); MEAN CORPUSCULAR HEMOGLOBIN 31.7 pg (25-34); MEAN CORPUSCULAR HGB CONC 34.7 g/dl (32-36); MEAN PLATELET VOLUME 10.3 fL (7.4-10.4); MONO % 9.3 %; MONO ABS # 0.81 K/uL (0.11-0.59); NEUT % 72.8 %; NEUT ABS # 6.32 K/uL (1.4-6.5); RED CELL DISTRIBUTION WIDTH SD 46.9 fL (36.4-46.3); WHITE BLOOD COUNT 8.69 K/uL (4.8-10.8)
[2017-12-06 08:16] LABS: CALCIUM 8.4 mg/dl (8.5-10.1); CREATININE 0.3 mg/dl (0.60-1.20); POTASSIUM 4.3 mmol/L (3.5-5.1)
--- NOTE | 2017-12-06 08:36 | Orthopedic Progress Note ---
Orthopedic Progress Note Date of Service Dec 06, 2017. Subjective Post OP Day: 3 Reports: feeling well, Denies: chest pain, SOB, nausea / vomiting, light headedness, calf pain Additional Notes: Pain off and on in the right hip / shoulder mostly with getting OOB etc. No new complaints. Objective calves soft nontender, N/V intact, dressing C/D/I, A&O x3, toes mobile sling in place on RUE Date Time Temp Pulse Resp B/P (MAP) Pulse Ox O2 Delivery O2 Flow Rate FiO2 12/06/17 07:23 37.1 73 16 131/73 (92) 96 Nasal Cannula 2.0 12/05/17 23:45 Room Air 12/05/17 23:37 37.4 87 16 147/75 (99) 95 Room Air 12/05/17 15:30 96 Room Air 12/05/17 15:25 37.1 75 22 150/82 (104) 96 Room Air 12/05/17 11:34 37.3 74 18 154/80 (104) 95 Room Air 12/05/17 09:15 95 Room Air 12/05/17 09:15 Room Air Laboratory Results 24 Hours: Test 12/06/17 07:40 White Blood Count 8.69 K/uL Red Blood Count 3.22 M/uL Hemoglobin 10.2 g/dL Hematocrit 29.4 % Mean Corpuscular Volume 91.3 fL Mean Corpuscular Hemoglobin 31.7 pg Mean Corpuscular Hemoglobin Concent 34.7 g/dl Platelet Count K/uL Mean Platelet Volume 10.3 fL Neutrophils (%) (Auto) 72.8 % Lymphocytes (%) (Auto) 16.1 % Monocytes (%) (Auto) 9.3 % Eosinophils (%) (Auto) 1.5 % Basophils (%) (Auto) 0.1 % Neutrophils # (Auto) 6.32 K/uL Lymphocytes # (Auto) 1.40 K/uL Monocytes # (Auto) 0.81 K/uL Eosinophils # (Auto) 0.13 K/uL Basophils # (Auto) 0.01 K/uL Assessment & Plan Assessment: 87 yo female stable POD #2 s/p right hip pinning, also with ipsilateral nonoperative prox humerus fracture Plan: 1. Med management 2. DVT prophylaxis- ASA, SCDs 3. PT/OT 4. D/C planning- pt interested in [facility], transfer per medicine Ortho will sign off for now. Please call with any questions. Instructions placed in EMR Inhouse Planning Pain Management: Ultram, Morphine, PO Tylenol DVT Prophylaxis: TEDs, SCDs, ASA Discharge Planning Discharge Planning: rehab hospital
--- NOTE | 2017-12-06 08:46 | Clinical Documentation Query ---
CLINICAL DOCUMENTATION QUERY Dr. DUNN, In your clinical opinion is this patient being managed for: ( ) Likely osteoporotic fracture, right femur ( ) Likely osteoporotic fracture, right humerus ( ) Not Agree ( ) Other explanation of clinical findings (Please Explain) ( ) Unable to determine (Please Define) ( x) Need to Discuss This patient is being seen by Dr. Billings on 12/06/17 for possible discharge. Please send your query to leanna The medical record reflects the following clinical findings, treatment, and risk factors. Clinical Indicators: 87 yo female presenting with a fall. Xrays reveal osteopenic skeletal structures. Pt also has a prior history of a fall with L hip fracture Treatment: chronic meds include calcium citrate +, vitamin D3, ORIF R hip and closed reduction and sling for R humerus fx. Risk Factors: age, gender Please clarify and document your clinical opinion in the progress notes and discharge summary. Terms such as "probable", "suspected", "likely", "questionable", "possible", or "still to be ruled out" are acceptable. IF IN AGREEMENT, YOU MUST DOCUMENT ABOVE DIAGNOSTIC STATEMENT IN DAILY PROGRESS NOTES AND DISCHARGE SUMMARY. This document is not part of the patient's record. Thank You, Maday Johnson, TATIANA [phone]
[2017-12-06] MEDS: ASPIRIN 81 MG ECTAB PO SCH ×2 (08:48→20:38)
[2017-12-06] MEDS: POLYETHYLENE (MIRALAX) 17 GM PACK PO PRN (08:48)
--- NOTE | 2017-12-06 12:02 | Progress Note ---
Subjective Date of Service: Dec 06, 2017. Subjective Pt evaluation today including: conversation w/ patient, physical exam, lab review, review of studies, review of inpatient medication list Saw/examined the patient in room 387 She's doing well Pain controlled without ambulation Problem List Medical Problems: (1) Fall Status: Acute (2) Femur fracture, right Status: Acute (3) Fracture of humerus, right, closed Status: Acute (4) Intertrochanteric fracture of left hip Status: Acute (5) Left-sided weakness Status: Acute Review of Systems Constitutional: No fever, No chills Respiratory: No shortness of breath Cardiac: No chest pain Abdomen: No pain, No nausea, No vomiting, No diarrhea Musculoskeletal: + joint pain Medications Current Inpatient Medications Medications (Trade) Dose Ordered Sig/Aristeo Route Start Time Stop Time Status Last Admin Dose Admin Prochlorperazine Edisylate 5 mg/ Syringe 5 ml @ 5 mls/min Q6H PRN IV 12/02/17 20:45 01/01/18 20:44 Tramadol HCl (Ultram Tab) not relieved by tylenol @ Q6H PRN PO 12/02/17 20:45 01/01/18 20:44 12/06/17 03:34 50 MG Acetaminophen (Tylenol Tab) 650 mg Q4H PRN PO 12/02/17 20:45 01/01/18 20:44 12/04/17 23:33 650 MG Naloxone HCl (Narcan Inj) 0.1 mg PRN PRN IV 12/02/17 20:45 01/01/18 20:44 Senna/Docusate Sodium (Senokot S Tab) 2 tab HS PO 12/02/17 21:00 01/01/18 20:59 12/05/17 20:39 2 TAB Polyethylene (Miralax Powder Packet) 17 gm DAILY PRN PO 12/02/17 20:45 01/01/18 20:44 12/06/17 08:48 17 GM Magnesium Hydroxide (Milk Of Magnesia Susp) 30 ml DAILY PRN PO 12/02/17 20:45 01/01/18 20:44 Bisacodyl (Dulcolax Supp) 10 mg DAILY PRN MN 12/02/17 20:45 01/01/18 20:44 Sodium Biphosphate/ Sodium Phosphate (Fleet Enema) 132 ml PRN PRN MN 12/02/17 20:45 Aspirin (Ecotrin Tab) 81 mg BID PO 12/03/17 09:00 01/02/18 08:59 12/06/17 08:48 81 MG Lorazepam (Ativan Tab) 1 mg Q4 PRN PO 12/03/17 18:30 01/02/18 18:29 12/04/17 09:45 1 MG Objective Vital Signs Date Time Temp Pulse Resp B/P (MAP) Pulse Ox O2 Delivery O2 Flow Rate FiO2 12/06/17 07:23 37.1 73 16 131/73 (92) 96 Nasal Cannula 2.0 12/05/17 23:45 Room Air 12/05/17 23:37 37.4 87 16 147/75 (99) 95 Room Air 12/05/17 15:30 96 Room Air 12/05/17 15:25 37.1 75 22 150/82 (104) 96 Room Air Physical Exam General Appearance: no apparent distress Respiratory/Chest: lungs clear, normal breath sounds, no respiratory distress, no accessory muscle use Cardiovascular: regular rate, rhythm, no edema, no murmur Extremities: normal inspection, no pedal edema Neurologic/Psychiatric: no motor/sensory deficits, alert, normal mood/affect Laboratory Results Last 24 Hours Test 12/06/17 07:40 White Blood Count 8.69 K/uL Red Blood Count 3.22 M/uL Hemoglobin 10.2 g/dL Hematocrit 29.4 % Mean Corpuscular Volume 91.3 fL Mean Corpuscular Hemoglobin 31.7 pg Mean Corpuscular Hemoglobin Concent 34.7 g/dl Platelet Count K/uL Mean Platelet Volume 10.3 fL Neutrophils (%) (Auto) 72.8 % Lymphocytes (%) (Auto) 16.1 % Monocytes (%) (Auto) 9.3 % Eosinophils (%) (Auto) 1.5 % Basophils (%) (Auto) 0.1 % Neutrophils # (Auto) 6.32 K/uL Lymphocytes # (Auto) 1.40 K/uL Monocytes # (Auto) 0.81 K/uL Eosinophils # (Auto) 0.13 K/uL Basophils # (Auto) 0.01 K/uL RDW Standard Deviation 46.9 fL RDW Coefficient of Variation 14.0 % Immature Granulocyte % (Auto) 0.2 % Immature Granulocyte # (Auto) 0.02 K/uL Sodium Level 129 mmol/L Potassium Level 4.3 mmol/L Chloride Level 96 mmol/L Carbon Dioxide Level 26 mmol/L Anion Gap 6.0 mmol/L Blood Urea Nitrogen 18 mg/dl Creatinine 0.30 mg/dl Est Creatinine Clear Calc Drug Dose 101.5 ml/min Estimated GFR () 120.2 Estimated GFR (Non- 103.7 BUN/Creatinine Ratio 60.1 Random Glucose 110 mg/dl Calcium Level 8.4 mg/dl Assessment and Plan This is an 87 year old female with a PMH of chronic hyponatremia, urinary retention, neuropathy - presents with a mechanical fall and R hip and shoulder fracture Mechanical Fall R Hip and Shoulder Osteopenic Traumatic Fracture 4/3 - POD #3 - patient is doing well - H/H is stable - PT/OT - d/c to [facility] when okay with CM 4/2 - POD #2 - patient is doing well - will stop IV morphine - use Tramadol PRN for pain - PT/OT - plan to d/c to [facility] today 12/04 - POD #1 - s/p ORIF of R hip - monitor H/H - continue Tramadol PRN, continue Ativan PRN - plan to d/c to [facility] in 1-2 days - nonweightbearing on R LE - outpatient ortho follow-up in 10-14 days 12/03 - s/p repair, POD #0 - ORIF of the R hip - patient c/o pain, will try alternating doses of morphine and tramadol, can add percocet if pain not controlled - added Ativan for anxiety; patient states she may be anxious - monitor H/H - further management as per ortho Chronic Hyponatremia - Na = 131 and stable, monitor DVT ppx - ASA 81mg BID as per ortho FULL CODE
[2017-12-06 15:20] VITALS: O2SAT 96
[2017-12-06 15:29] VITALS: BP 139/76; PULSE 75; TEMP 36.9; O2SAT 96
[2017-12-06] MEDS: DOCUSATE SODIUM/SENNA 50/8.6MG TAB PO SCH (20:38)
[2017-12-06 23:59] VITALS: BP 145/80; PULSE 69; TEMP 37.3; O2SAT 97
[2017-12-07] MEDS: TRAMADOL HCL 50 MG TAB PO PRN ×2 (06:08→13:19)
[2017-12-07 07:40] VITALS: BP 114/72; PULSE 72; TEMP 36.4; O2SAT 94
[2017-12-07 08:24] VITALS: O2SAT 94
[2017-12-07] MEDS: ASPIRIN 81 MG ECTAB PO SCH (09:26)
[2017-12-07] MEDS: POLYETHYLENE (MIRALAX) 17 GM PACK PO PRN (13:31)
[2017-12-07] MEDS ORDERED: DLCS PR (15:20)
[2017-12-07] MEDS ORDERED: ASPEC81 PO (15:20)
[2017-12-07] MEDS ORDERED: ULT50X PO (15:20)
[2017-12-07] MEDS ORDERED: SENN8.6T7 PO (15:20)
--- NOTE | 2017-12-07 15:27 | Progress Note ---
Internal Med Progress Note Date of Service: Dec 07, 2017. Provider Documentation: SUBJECTIVE: Patient denies acute pain. OBJECTIVE: General Appearance: no apparent distress Respiratory/Chest: lungs clear, normal breath sounds, no respiratory distress, no accessory muscle use Cardiovascular: regular rate, rhythm, no edema, no murmur Extremities: right arm in sling. no edema. Neurologic/Psychiatric: no motor/sensory deficits, alert, normal mood/affect ASSESSMENT & PLAN: Hospital Course This is an 87 year old female with a PMH of chronic hyponatremia, urinary retention, neuropathy who presented with a mechanical fall and Right Hip and Shoulder Osteopenic Traumatic Fracture PREOPERATIVE DIAGNOSES: 1. Right minimally displaced femoral neck fracture. 2. Right minimally displaced proximal humerus fracture. PROCEDURES 12/03/17 1. Open reduction and internal fixation of right femoral neck fracture with Synthes cannulated screws x3. 2. Closed treatment of right proximal humerus fracture with application of sling. 12/04/17 Orthopedic Recommendations: Nonweightbearing right lower and right upper extremities. May leave hip wounds uncovered when dry. Sling right UE, pt may move elbow, wrist, and hand. Ice to hip and shoulder for discomfort as needed. Follow-up with Dr Rainey ~ 10-14 days, call [phone] for appt. Patient has stabilized hyponatremia with serum sodium 129 Patient is to be discharged to [facility] ([place] with prescription for pain medication and bowel regimen and 30 day prescription for aspirin 81 mg BID as DVT prophylaxis after surgery Vital Signs: Date Time Temp Pulse Resp B/P (MAP) Pulse Ox O2 Delivery O2 Flow Rate FiO2 12/07/17 08:24 94 Room Air 12/07/17 08:00 Room Air 12/07/17 07:40 36.4 72 12 114/72 (86) 94 Room Air 12/06/17 23:59 37.3 69 18 145/80 (101) 97 Room Air 12/06/17 23:45 Room Air
[2017-12-07 15:31] VITALS: BP 114/72; PULSE 72; TEMP 36.4; O2SAT 94
--- NOTE | 2017-12-07 15:34 | Discharge Instructions ---
Discharge Instructions Date of Service Dec 07, 2017. Admission Reason for Admission: Closed Right Hip Fracture Discharge Discharge Diagnosis / Problem: right femoral neck, right humerus fracture, mild hyponatremia Discharge Goals Goal(s): Improve function Activity Recommendations Activity Limitations: per Instructions/Follow-up section Shower/Bathe: no limitations . Instructions / Follow-Up Instructions / Follow-Up Hospital Course This is an 87 year old female with a PMH of chronic hyponatremia, urinary retention, neuropathy who presented with a mechanical fall and Right Hip and Shoulder Osteopenic Traumatic Fracture PREOPERATIVE DIAGNOSES: 1. Right minimally displaced femoral neck fracture. 2. Right minimally displaced proximal humerus fracture. PROCEDURES 12/03/17 1. Open reduction and internal fixation of right femoral neck fracture with Synthes cannulated screws x3. 2. Closed treatment of right proximal humerus fracture with application of sling. 12/04/17 Orthopedic Recommendations: Nonweightbearing right lower and right upper extremities. May leave hip wounds uncovered when dry. Sling right UE, pt may move elbow, wrist, and hand. Ice to hip and shoulder for discomfort as needed. Follow-up with Dr Rainey ~ 10-14 days, call [phone] for appt. Patient has stabilized hyponatremia with serum sodium 129 Patient is to be discharged to [facility] with prescription for pain medication and bowel regimen and 30 day prescription for aspirin 81 mg BID as DVT prophylaxis after surgery Current Hospital Diet Patient's current hospital diet: Vegetarian Diet, Regular Diet Discharge Diet Recommended Diet: N/A (vegetarian diet) Procedures Procedures Performed: 1.Open Reduction Internal Fixation of Right Femoral Neck fracture with Synthes Cannulated Screws 2. Closed treatment right proximal humerus fracture with sling Pending Studies Studies pending at discharge: no Laboratory Results 12/06/17 07:40 Red Blood Count 3.22, Mean Corpuscular Volume 91.3, Mean Corpuscular Hemoglobin 31.7, Mean Corpuscular Hemoglobin Concent 34.7, Mean Platelet Volume 10.3, Neutrophils (%) (Auto) 72.8, Lymphocytes (%) (Auto) 16.1, Monocytes (%) (Auto) 9.3, Eosinophils (%) (Auto) 1.5, Basophils (%) (Auto) 0.1, Neutrophils # (Auto) 6.32, Lymphocytes # (Auto) 1.40, Monocytes # (Auto) 0.81, Eosinophils # (Auto) 0.13, Basophils # (Auto) 0.01 12/06/17 07:40 Test 12/02/17 19:05 12/05/17 06:39 12/06/17 07:40 Prothrombin Time 10.1 SECONDS (9.0-12.0) Prothromb Time International Ratio 1.0 (0.9-1.1) Activated Partial Thromboplast Time 26.8 SECONDS (21.0-31.0) Partial Thromboplastin Ratio 1.0 Magnesium Level 2.1 mg/dl (1.8-2.4) Total Bilirubin 0.3 mg/dl (0.2-1) Direct Bilirubin 0.1 mg/dl (0-0.2) Aspartate Amino Transf (AST/SGOT) 47 U/L (15-37) Alanine Aminotransferase (ALT/SGPT) 38 U/L (12-78) Alkaline Phosphatase 101 U/L (45-117) Total Protein 7.7 gm/dl (6.4-8.2) Albumin 3.9 gm/dl (3.4-5.0) Thyroid Stimulating Hormone (TSH) 2.350 uIu/ml (0.300-4.500) Platelet Count, Citrate 221 10^3/uL (130-400) White Blood Count 8.69 K/uL (4.8-10.8) Red Blood Count 3.22 M/uL (4.2-5.4) Hemoglobin 10.2 g/dL (12.0-16.0) Hematocrit 29.4 % (37-47) Mean Corpuscular Volume 91.3 fL (80-100) Mean Corpuscular Hemoglobin 31.7 pg (25-34) Mean Corpuscular Hemoglobin Concent 34.7 g/dl (32-36) Platelet Count K/uL (130-400) Mean Platelet Volume 10.3 fL (7.4-10.4) Neutrophils (%) (Auto) 72.8 % Lymphocytes (%) (Auto) 16.1 % Monocytes (%) (Auto) 9.3 % Eosinophils (%) (Auto) 1.5 % Basophils (%) (Auto) 0.1 % Neutrophils # (Auto) 6.32 K/uL (1.4-6.5) Lymphocytes # (Auto) 1.40 K/uL (1.2-3.4) Monocytes # (Auto) 0.81 K/uL (0.11-0.59) Eosinophils # (Auto) 0.13 K/uL (0-0.5) Basophils # (Auto) 0.01 K/uL (0-0.2) RDW Standard Deviation 46.9 fL (36.4-46.3) RDW Coefficient of Variation 14.0 % (11.5-14.5) Immature Granulocyte % (Auto) 0.2 % Immature Granulocyte # (Auto) 0.02 K/uL (0.00-0.02) Anion Gap 6.0 mmol/L (3-11) Est Creatinine Clear Calc Drug Dose 101.5 ml/min Estimated GFR () 120.2 Estimated GFR (Non- 103.7 BUN/Creatinine Ratio 60.1 (10-20) Calcium Level 8.4 mg/dl (8.5-10.1) Date/Time Source Procedure Growth Status 12/02/17 00:00 Nasal MRSA DNA Surveillance Screen - Final Specimen Negative for MRSA by DNA Probe Complete Medical Emergencies . Who to Call and When: Medical Emergencies: If at any time you feel your situation is an emergency, please call 911 immediately. . Non-Emergent Contact Non-Emergency issues call your: Primary Care Provider, Surgeon (orthopedics) Call Non-Emergent contact if: you have any medication questions . . "Provider Documentation" section prepared by Randall Lozoya. . Tankage Grinder Recommendations Tankage Grinder Recommendations: Nonweightbearing right lower and right upper extremities. May leave hip wounds uncovered when dry. Sling right UE, pt may move elbow, wrist, and hand. Ice to hip and shoulder for discomfort as needed. Follow-up with Dr Rainey ~ 10-14 days, call [phone] for appt.
--- NOTE | 2017-12-07 15:36 | Discharge Summary ---
Discharge Summary Date of Service Dec 07, 2017. Discharge Summary Admission Date: Dec 02, 2017 at 20:37 Discharge Date: Dec 07, 2017 Discharge Disposition: alf facility ([facility]) Principal Diagnosis: PREOPERATIVE DIAGNOSES: 1. Right minimally displaced femoral neck fracture. 2. Right minimally displaced proximal humerus fracture. PROCEDURES 12/03/17 1. Open reduction and internal fixation of right femoral neck fracture with Synthes cannulated screws x3. 2. Closed treatment of right proximal humerus fracture with application of sling. Secondary Diagnoses/Problems: mild hyponatremia Consultations: orthopedics Medication Reconciliation New Medications: Aspirin (Aspirin EC Low Dose) 81 Mg Ectab 81 MG PO BID for 30 Days, #60 TAB Bisacodyl (Bisac-Evac) 10 Mg Supp 10 MG MI DAILY PRN for Constipation for 30 Days, #30 SUPP Sennosides-Docusate Sodium (Senokot S) 1 Tab Tab 2 TAB PO HS for 30 Days, #60 TAB Tramadol HCl (Tramadol HCl) 50 Mg Tab 25-50 MG PO Q6H PRN for Pain for 5 Days, #20 TAB Continued Medications: Ascorbic Acid (Vitamin C) 1,000 Mg Tab 2 TABS PO BID B-Complex Vitamins (Vitamin B Complex) 1 Tab Tab 1 TAB PO DAILY Multiple Minerals W/ Vitamins (Calcium Citrate +) 1 Tab Tab 2 TABS PO BID Multiple Vitamins W/ Minerals (Eye Vitamins) 1 Cap Cap 1 CAP PO QAM [place] Oil ([place] Oil) 1 Oil Oil 1 DOSE PO DAILY Vitamin A-Beta Carotene (Vitamin A) 1 Tab Tab 1 TAB PO DAILY [Vitamin D3] () 6 DROP PO DAILY Discontinued Medications: Bromelains (Bromelain) 1 Pow Pow 1 DOSE PO Q2D Coconut Oil (Bulk) (Coconut Oil) 1 Oil Oil 1 CAP PO DAILY Flaxseed (Linseed) (Flaxseed Oil) 1 Oil Oil 1 DOSE PO DAILY Ginkgo Biloba (Ginkgo) 60 Mg Tab 1 TAB PO BID Turmeric (Curcuma Longa) (Bulk (Curcumin) 1 Pow Pow 1 DOSE PO QAM Admission Information HPI (per Admitting provider): History obtained from patient and records. Medical history significant for chronic hyponatremia, neuropathy as per records, macular degeneration. Recent confinement May 2016 for left hip fracture secondary to fall sp surgery. Patient was at the [facility] earlier today for a meal. She fell down 2 [address] somewhere at the facility. Patient fell on her right side. She subsequently noted excruciating right shoulder and R hip pain. No chest pain, no shortness of breath, no syncope, no head trauma, no LOC. She was brought to the Emergency Room. Physical Exam (per Admitting): PHYSICAL EXAMINATION: VITAL SIGNS: Blood pressure was noted to be 182/128 later 150/70, pulse rate 87, RR 24, temperature 36.4, sats 95 on room air. GENERAL: Noted to be anxious, uncomfortable, no respiratory distress, looks younger for stated age. SKIN: Normal color, warm. HEENT: [place] palpebral conjunctivae. No ptosis. Dry mucosa. NECK: Supple, nontender. LUNGS: Decreased breath sounds. No tenderness. HEART: Regular rate and rhythm, no murmur. ABDOMEN: Soft, nontender. EXTREMITIES: Sling on the right upper extremity. Tenderness in right hip. NEUROLOGIC: Coherent. No gross focality. Hospital Course Hospital Course This is an 87 year old female with a PMH of chronic hyponatremia, urinary retention, neuropathy who presented with a mechanical fall and Right Hip and Shoulder Osteopenic Traumatic Fracture PREOPERATIVE DIAGNOSES: 1. Right minimally displaced femoral neck fracture. 2. Right minimally displaced proximal humerus fracture. PROCEDURES 12/03/17 1. Open reduction and internal fixation of right femoral neck fracture with Synthes cannulated screws x3. 2. Closed treatment of right proximal humerus fracture with application of sling. 12/04/17 Orthopedic Recommendations: Nonweightbearing right lower and right upper extremities. May leave hip wounds uncovered when dry. Sling right UE, pt may move elbow, wrist, and hand. Ice to hip and shoulder for discomfort as needed. Follow-up with Dr Rainey ~ 10-14 days, call [phone] for appt. Patient has stabilized hyponatremia with serum sodium 129 Patient is to be discharged to [facility] with prescription for pain medication and bowel regimen and 30 day prescription for aspirin 81 mg BID as DVT prophylaxis after surgery Total time spent on discharge = 40 minutes This includes examination of the patient, discharge planning, medication reconciliation, and communication with other providers. Discharge Instructions see above
[2017-12-07 15:49] VITALS: BP 163/71; PULSE 74; TEMP 36.7; O2SAT 93
[2017-12-07 15:53] VITALS: BP 153/81
== END 2017-12-07 16:30 | DRG 481 ==
LOC: EDBD 16:23 → C.EDA 16:30 → C.3E 20:37 → ENRESERV 20:57 → C.MSN 12-03 09:29
PROVIDERS: ADMIT Family Medicine; ATTEND Hospitalist
PROC: 0PSFXZZ Reposition Right Humeral Shaft, External Approach (ICD-10-PCS; principal; 2017-12-03 07:30)
PROC: 0QS604Z Reposition Right Upper Femur with Internal Fixation Device, Open Approach (ICD-10-PCS; principal; 2017-12-03 07:30)
DX: M84.621 Pathological fracture in other disease, right humerus (principal); E87.1 Hypo-osmolality and hyponatremia; M84.651A Pathological fracture in other disease, right femur, initial encounter for fracture; I10 Essential (primary) hypertension; Z86.73 Personal history of transient ischemic attack (TIA), and cerebral infarction without residual deficits; H35.30 Unspecified macular degeneration; Y92.218 Other school as the place of occurrence of the external cause; W10.8XXA Fall (on) (from) other stairs and steps, initial encounter